=== PATIENT | female | born 1960 | race Caucasian/White ===

== ENCOUNTER → 2021-01-09 10:04 | Outpatient (BNVA) | payer BC, SELFPAY | PROVIDERS: PCP Internal Medicine; Visit Provider Hospitalist ==

== ENCOUNTER 2021-11-18 | Outpatient (REF) | payer BC, SELFPAY ==
--- NOTE | ~2021-11-18 | CT_ITS ---
EXAMINATION: CT CHEST WITHOUT CONTRAST CLINICAL INFORMATION: Other nonspecific abnormal finding of lung field COMPARISON: None TECHNIQUE: Multidetector volumetric CT imaging of the chest was done. Axial MIP volume rendering provided. Sagittal and coronal reformatted images were obtained. This CT examination was performed using dose optimization techniques as appropriate, variously including the following: *Automated exposure control *Adjustment of mA and/or kV according to patient size (this includes techniques or standardized protocols for targeted exams where dose is matched to indication/reason for exam; i.e. extremities or head) *Use of iterative reconstruction technique DLP: 188 mGy-cm FINDINGS: The heart is normal in size. Coronary artery calcifications are present. There is no pericardial effusion. Normal caliber thoracic aorta. A few normal-sized mediastinal lymph nodes are noted. No enlarged axillary lymph nodes. Central airways are patent. Lungs are well aerated. Mild biapical scarring. Minimal subpleural opacities dependently suggesting atelectasis. There is no lobar consolidation. No pleural effusion or pneumothorax. 4 mm pulmonary nodule of the right middle lobe (image 253/503, series 7). 4 mm subpleural nodule of the left lower lobe (image 298). Visualized portions of the abdomen are grossly unremarkable. Mild to moderate diffuse degenerative changes of the spine. CT/CT chest wo con IMPRESSION: -No lobar consolidation, pleural effusion or pneumothorax. -A few sub-5 mm pulmonary nodules are identified. According to the UPDATED 2017 Fleischner Society recommendations, the advised follow-up imaging for solid nodules < 6 mm is: LOW RISK PATIENT: No routine follow-up. HIGH RISK PATIENT: Optional CT at 12 months. Fleischner guidelines were followed.
== END 2021-11-18 00:01 ==
LOC: HO.CT
PROVIDERS: Visit Provider Hospitalist
DX: R91.8 Other nonspecific abnormal finding of lung field (principal); R59.1 Generalized enlarged lymph nodes
CPT/HCPCS: 71250

== ENCOUNTER 2021-12-19 16:05 | Outpatient (REF) | payer BC, SELFPAY ==
--- NOTE | 2021-12-19 17:34 | PFT_ITS ---
FLOWS: FEV1 79% predicted at 1.96 L. FVC 67% of predicted at 2.16 L. FEV1 to FVC ratio of 0.91. Positive bronchodilator response. LUNG VOLUMES: Total lung capacity 74% of predicted at 3.77 L. Residual volume 65% predicted at 1.33 L. Slow vital capacity 81% of predicted at 2.44 L. Expiratory reserve volume 11% of predicted at 0.10 L. Diffusion capacity is mildly decreased, diffusion capacity corrects to normal after adjustment for alveolar ventilation. IMPRESSION: Moderate restrictive ventilatory defect with positive bronchodilator response. Decreased expiratory reserve volume suggests extrathoracic restriction, likely secondary to abdominal obesity. Mic Blair MD AP/MODL / [phone]
== END 2021-12-19 16:06 | disposition home or self-care (01) ==
LOC: HO.RESP 16:05
PROVIDERS: PCP Internal Medicine; Visit Provider Hospitalist
DX: R06.00 Dyspnea, unspecified (principal); J44.9 Chronic obstructive pulmonary disease, unspecified
CPT/HCPCS: 94060; 94727; 94729

== ENCOUNTER → 2022-01-16 15:34 | Outpatient (BNVA) | payer BC, SELFPAY | PROVIDERS: PCP Internal Medicine; Visit Provider Hospitalist ==

== ENCOUNTER → 2022-06-02 13:33 | Outpatient (BNVA) | payer BC, SELFPAY | PROVIDERS: PCP Internal Medicine; Visit Provider Hospitalist | DX: J44.9 Chronic obstructive pulmonary disease, unspecified (principal); R59.1 Generalized enlarged lymph nodes; R91.8 Other nonspecific abnormal finding of lung field; G47.33 Obstructive sleep apnea (adult) (pediatric); Z99.89 Dependence on other enabling machines and devices | CPT/HCPCS: 94618 ==

== ENCOUNTER 2022-12-11 15:46 | Outpatient (REF) | payer BC, SELFPAY ==
[2022-12-11 16:29] LABS: MANUAL DIFF FLAG NO
[2022-12-11 17:02] LABS: Basophils Absolute Auto 0.1 X10*3/uL (0.0-0.2); Basophils Percent Auto 0.6 % (0-2); Eosinophils Absolute Auto 0.2 X10*3/uL (0.0-0.4); Eosinophils Percent Auto 2.4 % (0-4); Hematocrit 39.4 % (37.0-47.0); Hemoglobin 12.9 g/dl (12.0-16.0); Imm Gran Abs Auto 0.04 X10*3/uL (0.00-0.03); Imm Gran Pct Auto 0.4 % (0.0-0.4); Lymphocytes Absolute Auto 2.4 X10*3/uL (1.2-4.9); Lymphocytes Percent Auto 24.7 % (20-40); Mean Corpuscular HGB Conc 32.7 g/dl (31.0-35.0); Mean Corpuscular Hemoglobin 28.6 pg (27.0-33.0); Mean Corpuscular Volume 87.4 fL (80.0-98.0); Mean Platelet Volume 10.9 fL (9.4-12.3); Monocytes Absolute Auto 0.7 X10*3/uL (0.1-1.2); Monocytes Percent Auto 7.5 % (2-11); Neutrophils Absolute Auto 6.3 x10*3/uL (2.0-8.3); Neutrophils Percent Auto 64.4 % (45-73); Platelet Count 296 X10*3/uL (160-400); Red Blood Count 4.51 X10*6/uL (4.20-5.50); Red Cell Distribution Width 14.1 % (11.0-16.0); White Blood Count 9.7 X10*3/uL (4.8-10.8)
[2022-12-11 17:10] LABS: D Dimer High Sensitivity 191 NG/ML
[2022-12-11 17:32] LABS: Anion Gap 13 (12-20); Blood Urea Nitrogen 22 mg/dL (9-16); Calcium 9.7 mg/dL (8.4-10.2); Carbon Dioxide 32 mmol/L (22-29); Chloride 98 mmol/L (96-108); Estimated Glomerular Filt Rate > 60; Glucose Random 93 mg/dL (60-115); Potassium 3.9 mmol/L (3.3-5.1); Sodium 139 mmol/L (135-145)
[2022-12-11 17:36] LABS: B Type Natriuretic Peptide 29 pg/mL (<100); Erythrocyte Sedimentation Rate 38 MM/HR (0-20)
== END 2022-12-11 15:47 | disposition home or self-care (01) ==
LOC: HO.LAB 15:46
PROVIDERS: PCP Internal Medicine; Visit Provider Hospitalist
DX: R06.00 Dyspnea, unspecified (principal); R09.02 Hypoxemia; R91.8 Other nonspecific abnormal finding of lung field; J44.9 Chronic obstructive pulmonary disease, unspecified; I50.9 Heart failure, unspecified; R15.9 Full incontinence of feces; G47.33 Obstructive sleep apnea (adult) (pediatric); Z99.89 Dependence on other enabling machines and devices
CPT/HCPCS: 36415; 80048; 83880; 85025; 85379; 85652

== ENCOUNTER → 2023-01-08 15:49 | Outpatient (BNVA) | payer BC, SELFPAY | PROVIDERS: PCP Internal Medicine; Visit Provider Hospitalist | DX: R06.00 Dyspnea, unspecified (principal); I50.9 Heart failure, unspecified; R91.8 Other nonspecific abnormal finding of lung field; R09.02 Hypoxemia ==

== ENCOUNTER 2023-02-09 16:03 | Outpatient (REF) | payer BC, SELFPAY ==
--- NOTE | ~2023-02-09 | CT_ITS ---
EXAMINATION: CT CHEST WITHOUT CONTRAST CLINICAL INFORMATION: Other nonspecific abnormal finding of lung field COMPARISON: Previous chest CT November 2021 TECHNIQUE: Multidetector volumetric CT imaging of the chest was done. Axial MIP volume rendering provided. Sagittal and coronal reformatted images were obtained. This CT examination was performed using dose optimization techniques as appropriate, variously including the following: *Automated exposure control *Adjustment of mA and/or kV according to patient size (this includes techniques or standardized protocols for targeted exams where dose is matched to indication/reason for exam; i.e. extremities or head) *Use of iterative reconstruction technique DLP: 302 mGy-cm FINDINGS: LUNGS: There are scattered small areas of increased attenuation. The majority of these appear either peripheral or subpleural in distribution. There is a question of a slight increase in increased peripheral interstitial markings or reticulation. Findings are questionable for mild interstitial lung disease. Appears increased from There is a 4 mm right middle lobe nodule axial image 211 series 5 that is stable. There is a 4 mm peripheral or subpleural left lower lobe nodule axial image 252 series 5 that is stable. There is a 3 mm peripheral or subpleural right middle lobe nodule axial image 251 series 5. No new pulmonary nodule. MEDIASTINUM: The mediastinum is normal. CORONARY ARTERY CALCIFICATION: Mild PLEURA: There is no pleural effusion. No pleural mass or thickening. AXILLA: No lymphadenopathy. UPPER ABDOMEN: Unremarkable. The gallbladder has been removed. OSSEOUS STRUCTURES: Degenerative changes of the spine. CT/CT chest wo IV con IMPRESSION: Stable pulmonary nodules. Question mild interstitial lung disease. Prone imaging on follow-up exam would be helpful to distinguish this from dependent atelectasis. Fleischner guidelines were followed.
[2023-02-09 19:46] LABS: Anion Gap 15 (12-20); Blood Urea Nitrogen 17 mg/dL (9-16); Calcium 9.6 mg/dL (8.4-10.2); Carbon Dioxide 30 mmol/L (22-29); Chloride 98 mmol/L (96-108); Estimated Glomerular Filt Rate > 60; Glucose Random 88 mg/dL (60-115); Potassium 4.2 mmol/L (3.3-5.1); Sodium 139 mmol/L (135-145)
== END 2023-02-09 16:04 | disposition home or self-care (01) ==
LOC: HO.LAB 16:03
PROVIDERS: PCP Internal Medicine; Visit Provider Hospitalist
DX: R91.8 Other nonspecific abnormal finding of lung field (principal); I50.9 Heart failure, unspecified; R09.02 Hypoxemia; R06.00 Dyspnea, unspecified
CPT/HCPCS: 36415; 71250; 80048

== ENCOUNTER 2023-03-12 15:45 | Outpatient (REF) | payer BC, SELFPAY ==
[2023-03-12 16:29] LABS: MANUAL DIFF FLAG NO
[2023-03-12 16:35] LABS: Basophils Absolute Auto 0.1 X10*3/uL (0.0-0.2); Basophils Percent Auto 0.5 % (0-2); Eosinophils Absolute Auto 0.2 X10*3/uL (0.0-0.4); Eosinophils Percent Auto 2.1 % (0-4); Hematocrit 38.6 % (37.0-47.0); Hemoglobin 12.8 g/dl (12.0-16.0); Imm Gran Abs Auto 0.03 X10*3/uL (0.00-0.03); Imm Gran Pct Auto 0.3 % (0.0-0.4); Lymphocytes Absolute Auto 2.2 X10*3/uL (1.2-4.9); Lymphocytes Percent Auto 23.5 % (20-40); Mean Corpuscular HGB Conc 33.2 g/dl (31.0-35.0); Mean Corpuscular Hemoglobin 28.7 pg (27.0-33.0); Mean Corpuscular Volume 86.5 fL (80.0-98.0); Mean Platelet Volume 9.9 fL (9.4-12.3); Monocytes Absolute Auto 0.7 X10*3/uL (0.1-1.2); Monocytes Percent Auto 7.7 % (2-11); Neutrophils Absolute Auto 6.2 x10*3/uL (2.0-8.3); Neutrophils Percent Auto 65.9 % (45-73); Platelet Count 295 X10*3/uL (160-400); Red Blood Count 4.46 X10*6/uL (4.20-5.50); Red Cell Distribution Width 14.6 % (11.0-16.0); White Blood Count 9.4 X10*3/uL (4.8-10.8)
[2023-03-12 17:13] LABS: Erythrocyte Sedimentation Rate 33 MM/HR (0-20)
[2023-03-14 02:38] LABS: Immunoglobulin E 112 kU/L (<OR=114)
[2023-03-16 15:47] LABS: Cyclic Citrullinated Peptide <16 UNITS
[2023-03-17 12:19] LABS: Anti Nuclear Antibody Screen NEGATIVE (NEGATIVE)
[2023-03-19 15:13] LABS: Asperg fumigatus Precip Abs NEGATIVE (NEGATIVE); Micropoly faeni Abs NEGATIVE (NEGATIVE); Pigeon serum Abs NEGATIVE (NEGATIVE); Saccharo pora viridis Abs NEGATIVE (NEGATIVE); Thermo candidus Abs NEGATIVE (NEGATIVE); Thermoa vulgaris #1 NEGATIVE (NEGATIVE)
== END 2023-03-12 15:46 | disposition home or self-care (01) ==
LOC: HO.LAB 15:45
PROVIDERS: PCP Internal Medicine; Visit Provider Hospitalist
DX: R06.00 Dyspnea, unspecified (principal); I50.9 Heart failure, unspecified; R91.8 Other nonspecific abnormal finding of lung field; R09.02 Hypoxemia; J84.9 Interstitial pulmonary disease, unspecified; J44.9 Chronic obstructive pulmonary disease, unspecified; R59.1 Generalized enlarged lymph nodes; G47.33 Obstructive sleep apnea (adult) (pediatric); Z99.89 Dependence on other enabling machines and devices
CPT/HCPCS: 36415; 82164; 82785; 85025; 85652; 86038; 86200; 86331; 86606; 86609

== ENCOUNTER 2023-06-16 15:49 | Outpatient (AMB) | payer BC, SELFPAY ==
--- NOTE | 2023-06-16 15:52 | A.OFFVIS_ITS ---
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 She responded very well to the Trelegy inhaler. She has not had to use her rescue inhaler. She it does relieve her dyspnea and also relieve some of the chest pressure. She notices that her oxygen levels during the daytime are in the low 90s. At nighttime she does use CPAP the CPAP therapy continues to be a very effective in beneficial. She does use the CPAP more than 4 hours a night. She did have a CT scan of the chest which we pers onally reviewed back in May 2019demonstrating small pulmonary nodules that do any follow-up. For but she also has test suggestive of the possibility of pulmonary hypertension. Therefore, she should have a echocardiogram. 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 In the meantime the patient is doing very well on her respiratory therapy. Denies any significant shortness of breath and wheezing. She is scheduled for another CT scan in May of this year to follow up with her pulmonary nodules. 01/09/2021 The patient is here for a pulmonary follow up visit. Overall doing well. Having dyspnea on exertion, mild in severity. Symptoms overall better on the Trelegy inhaler. Has not required any Prednisone. Her PAP therapy continues to be effective and beneficial. She uses it more than 4 hours a night. I did request that her [employer] sent over a download. She does wake up rested and denies any headaches. The [employer] company never delivered the device. At this point we can hold off on it. We did review her last 2 [address] chest from [facility]. She has a couple subcentemeter pulmonary nodules that appear stable when compared to 2019. However, She does have mediastinal lymphadenopathy with station [address] measuring a little more than 1cm. Based on the the findings, I will request a CT chest in 6-8 months. 01/16/2022 the patient is here for a pulmonary follow-up visit. She continues to have the dyspnea symptoms. Initially better on the Trelegy but not since completely improved. She has been trying to lose weight. The patient did undergo pulmonary function studies that I personally reviewed with her. It appears that she does not have an obstructive ventilatory defect, although, she does have a mild restrictive ventilatory defect associated with mild diffusion impairment. She also had a CT scan of the chest that we were able to look at and ruled out any interstitial lung disease that could be contributing to the restriction. At this point is more likely to be related to body habitus. I did encourage her for her to continue to exercising weight management and her symptoms should improve. In the meantime with and also increase her Trelegy to the maximum dose. As far as her pulmonary nodules the patient does have underlying pulmonary nodules that need to be continued to be followed. No acute changes at this time. She does have some slight lymphadenopathy but minimal. In addition to that she does have a CPAP. She does have an old [employer] which now is recall. She did not know about the recall. She was going to look into it I did provide her with the information in order for her to register her machine so she can get a replacement machine. When she gets a replacement machine can not adjust the pressures. Currently her CPAP is set up a CPAP of 9 cm. She is using a nasal mask. I cannot get an AHI but she clinically is doing well feels well on it. Hopefully when she does any machine we can download it and get proper apnea-hypopnea index. 06/02/2022 the patient is here for a pulmonary follow-up visit. She continues to have dyspnea symptoms. Moderate severity. Primarily with activity. She did have a 6 minutes walk test today which was reassuring. She continues use her CPAP with good effect. The CPAP therapy continues to be affecting beneficial. She also continues on maximum respiratory therapy for her obstructive airway disease. The patient does have increased swelling her lower extremities. My suspicion is that she is volume overloaded. Therefore will trial some Lasix to see if she improves her lower extremity swelling and also her symptoms of dyspnea. Will going to continue on the Trelegy at this time. Once the patient completes the Lasix it is reasonable to check her basic metabolic panel to make sure that she does not have any electrolyte derangements. once she completes the bases he can go back on her regular medication. 12/11/2022 the patient is here for a pulmonary follow-up visit. She still continues to complaint of dyspnea on exertion. Again moderate severity. Hard to do her activities of daily living. We again underwent a 6 minute walk testin g this time she did desaturate down to to 90% with activity which is lower than before. She still has significant lower extremity edema. She was placed on a mild diuretic. Previously we had given her several days of Lasix to try to improve her volume status. The patient is currently being evaluated for some degree of cardiomyopathy. She is scheduled for cardiac PET. She did have the cardiac PET but then the machine lost the data and therefore she is rescheduled to undergo that. She continues to use the Trelegy inhaler. she has not had to use his rescue inhaler. The patient also continues with her CPAP therapy if therapy has been affecting beneficial. She does use it more than 4 hours a night. She did bring the download card although we cannot read the card. She will bring her machine It for the next visit. In view of the worsening hypoxia will go ahead and request blood work. 01/08/2023 the the patient is here again for follow-up visit. She still complains of dyspnea on exertion. Moderate severity. She is scheduled to follow-up with cardiology. She does have some degree of cardiomyopathy and was scheduled for cardiac. But now is on hold. Therefore, she will follow-up with cardiology and likely get an echocardiogram. She continues to be on Trelegy inhaler. She also brought her CPAP. Her AHI is up to 3. Her average pressure is 10. I did adjust the APAP to 6-12. The patient will try this and then will increase accordingly. I do not believe that her obstructive sleep apnea is resulting in her shortness of breath however. Will try to improve those numbers anyway. The patient still having shortness of breath and did go for brief walking test today she is still desaturating down to 92%. On examination she does have some rales on the right mid lung area. Mainly in late inspiration. Her last CT scan was last year for pulmonary nodules and now with the evidence of crackles on examination and her hypoxia will go ahead and repeat the CT scan. I did request a D-dimer which was negative for therefore irregular noncontrast CT scan will be sufficient for on needs. In the meantime view of her ongoing symptoms will be reasonable to treated with a short course of prednisone to see there is improvement of her symptoms and also to see if it improves the findings on her CT scan. 03/12/2023 the patient is here for a pulmonary follow-up visit. She is feeling a little better. Although her pulse ox continues to be a little bit on the lower side for her. Her chest tightness is improved a little bit and she still has the shortness of breath. She did follow-up with the Cardiology and did undergo an echocardiogram which was told that was okay and now will be undergoing a cardiac PET scan. She did complete the prednisone. She did also have a CT scan of the chest which we personally reviewed. Her pulmonary nodules are stable although does have have some increased interstitial changes at the bases right more than left. Indeed she still has some crackles in that area. These interstitial changes are new suggesting an evolving process. The changes are minimal but is suspecting that this is resulting in her decreased oxygen supplementation and her ongoing symptoms. Will have her undergo blood work to assess for different etiologies for the interstitial lung condition. 06/16/2023 the patient is here for pulmonary follow-up visit. She continues to be about the same, complaining of dyspnea on exertion. Gupq-on-aesckxln severity. She did not respond to the Trelegy inhaler. She does better with the rescue inhaler. The patient also had a CT scan demonstrating some interstitial changes. Her blood work was all negative for any connective tissue diseases or hypersensitivity reactions. Will have to monitor those changes. Her pulmonary nodules have been stable which is reassuring. Her last pulmonary function study was back from December 2021. At this point in view of her persistent symptoms repeating the PFTs will be warranted. Will also optimize her respiratory treatment switching over to an HFA. The patient also has been using her CPAP. She did bring it in. Her AHI still slightly elevated around 3. It appears that her average pressure is 11.9 and her machine is only set up to go to 12. Explained to the patient that she would need a higher pressure. Although I will increase the just slightly to make sure that she continues to tolerate appeared. If she does tolerate the pressures but she thinks she needs further elevations she can always call me and I can adjust the machine. Right now we increase that from 6-12 to 05/10/2013. Should be switched to the breztri inhaler have PFTs will follow-up in 3-4 months. [facility], [facility] Medical History (Updated 06/16/23 @ 22:52 by Bharat Knight MD) Asthma-COPD overlap syndrome Lymphadenopathy VIVIENNE on CPAP Pulmonary nodules Social History (Updated 01/16/22 @ 15:48 by LAVELLE Rodriguez) Patient Tobacco Use Status: Never used Tobacco Review of Systems Const Denies night sweats ENT Denies change in voice, Denies lip swelling, Denies mouth pain, Reports nasal congestion, Reports nasal discharge and Denies tongue swelling Card Denies chest pain, Reports leg edema and Reports dyspnea on exertion Resp Reports cough and Reports dyspnea on exertion GI Denies abdominal pain Musc Denies no additional complaints Neuro Denies Neuro-related abnormal movements Psych Denies no additional complaints Kemar/Lymph Denies easy bleeding and Denies lymphadenopathy Aller/Immun Denies lip swelling and Denies tongue swelling Physical Exam Vital Signs: Last Vital Signs Pulse 72 06/16/23 15:53 Pulse Ox 97 06/16/23 15:53 Oxygen Delivery Method Room Air 06/16/23 15:53 BMI result Body Mass Index 41.4 Const General: alert HEENT General nose exam: Abnormal external nose present and Nasal discharge present Eyes Pupils: Equal, round and reactive pupils present Neck Neck: Yes normal visual inspection, Yes full ROM and Yes no lymphadenopathy Chest Chest palpation & inspection: normal inspection of the chest Resp Auscultation: rales on the right in the mid lung watts, no rhonchi, no wheezes and diminished lung sounds Cardio Rate: regular rate Rhythm: regular rhythm Heart sounds: S1 normal heart sound present and S2 normal heart sound present GI Palpation (GI): Soft to palpation and nontender Auscultation: normal bowel sounds General: Yes no CVA tenderness Back/Spine/Pelvis Back: no CVA tenderness Skin General skin exam: rashes and/or lesions noted Neuro Cranial nerves: Yes Equal, round and reactive pupils present Extrem General: Yes edema Assessment & Plan Assessment & Plan (1) Asthma-COPD overlap syndrome: Code(s): J44.9 - Chronic obstructive pulmonary disease, unspecified (2) Lymphadenopathy: Code(s): R59.1 - Generalized enlarged lymph nodes (3) Pulmonary nodules: Code(s): R91.8 - Other nonspecific abnormal finding of lung field (4) VIVIENNE on CPAP: Code(s): G47.33 - Obstructive sleep apnea (adult) (pediatric); Z99.89 - Dependence on other enabling machines and devices (5) ILD (interstitial lung disease): Code(s): J84.9 - Interstitial pulmonary disease, unspecified Plan stop Trelegy to 200 mcg daily start Breztri JAVAD as needed Continue APAP, adjusted 6-12 to 7-13 ([employer], buys her supplies) PFTs F/U 3-4 months Orders: Orders PFT pulmonary function test Today J84.9 - Interstitial pulmonary disease, unspecified Medications: New drpkxtlgto-ihshslgu-qiatodvama 160-9-4.8 mcg/actuation (Breztri Aerosphere) 2 inhalations inhalation BID 10.7 grams 11RF 30 days Coding Level of Care Code Est Pt Level 4 (52472) Diagnoses Asthma-COPD overlap syndrome J44.9 Lymphadenopathy R59.1 Pulmonary nodules R91.8 VIVIENNE on CPAP G47.33; Z99.89 ILD (interstitial lung disease) J84.9 Time Spent (min) 21
[2023-06-16 15:53] VITALS: PULSE 72; O2SAT 97; BMI 41.4
== END 2023-06-16 16:28 | disposition home or self-care (01) ==
PROVIDERS: PCP Internal Medicine; Visit Provider Hospitalist
DX: J44.9 Chronic obstructive pulmonary disease, unspecified (principal); R59.1 Generalized enlarged lymph nodes; R91.8 Other nonspecific abnormal finding of lung field; G47.33 Obstructive sleep apnea (adult) (pediatric); Z99.89 Dependence on other enabling machines and devices; J84.9 Interstitial pulmonary disease, unspecified
CPT/HCPCS: 99214

== ENCOUNTER → 2023-06-16 15:49 | Outpatient (BNVA) | payer BC, SELFPAY | PROVIDERS: PCP Internal Medicine; Visit Provider Hospitalist ==

== ENCOUNTER 2023-10-26 15:59 | Outpatient (REF) | payer BC, SELFPAY ==
--- NOTE | 2023-10-26 16:23 | PFT_ITS ---
Spirometry [] Forced vital capacity 79%, FEV1 83%, FEV1/FVC ratio 82 FEF 03/28/2075 114% and MVV 84%. Post bronchodilator therapy there is no improvement Lung Volumes [] Total lung capacity 75% residual volume 76% Diffusion Capacity [] DLCO 75% and dL/VA 108% Methacholine Challenge [] Flow Volume Loops [] Normal MVV [] MIP/MEP(Max inspiratory pressure/Max expiratory pressure) [] 6 Minute Walk Test [] ABG [] Interpretation [] MILD RESTRICTIVE PULMONARY DISORDER NO OBSTRUCTIVE AIRWAY DISORDER AND NO RESPONSE TO BRONCHODILATOR THERAPY. MTDD
== END 2023-10-26 16:00 | disposition home or self-care (01) ==
LOC: HO.RESP 15:59
PROVIDERS: Visit Provider Hospitalist
DX: J84.9 Interstitial pulmonary disease, unspecified (principal)
CPT/HCPCS: 94010; 94727; 94729

== ENCOUNTER → 2023-10-26 16:23 | Outpatient (BNV) | payer BC, SELFPAY | PROVIDERS: Visit Provider Internal Medicine | DX: J84.9 Interstitial pulmonary disease, unspecified (principal) | CPT/HCPCS: 94060; 94727; 94729 ==

== ENCOUNTER 2023-11-10 15:52 | Outpatient (AMB) | payer BC, SELFPAY ==
--- NOTE | 2023-11-10 15:53 | A.OFFVIS_ITS ---
Intake Vital Signs 11/10/23 15:54 Height 5 ft 4 in Weight 255 lb 11.779 oz BMI 43.9 BP 137/78 Blood Pressure Location Rt brachial Position Sitting Pulse 62 Pulse Source Doppler Pulse Oximetry (%) 98 Oxygen Delivery Method Room Air Intake Visit Reasons: copd Allergies lisinopril Allergy (Severe, Verified 11/10/23 15:55) Anaphylaxis HPI HPI Comments History of Present Illness Details The patient is a 63-year-old woman with a history of COPD in addition to dyspnea and chest discomfort. She responded very well to the Trelegy inhaler. She has not had to use her rescue inhaler. She it does relieve her dyspnea and also relieve some of the chest pressure. She notices that her oxygen levels during the daytime are in the low 90s. At nighttime she does use CPAP the CPAP therapy continues to be a very effective in beneficial. She does use the CPAP more than 4 hours a night. She did have a CT scan of the chest which we personally reviewed back in May 2019demonstrating small pulmonary nodules that do any follow-up. For but she also has test suggestive of the possibility of pulmonary hypertension. Therefore, she should have a echocardiogram. 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 In the meantime the patient is doing very well on her respiratory therapy. Denies any significant shortness of breath and wheezing. She is scheduled for another CT scan in May of this year to follow up with her pulmonary nodules. 01/09/2021 The patient is here for a pul monary follow up visit. Overall doing well. Having dyspnea on exertion, mild in severity. Symptoms overall better on the Trelegy inhaler. Has not required any Prednisone. Her PAP therapy continues to be effective and beneficial. She uses it more than 4 hours a night. I did request that her [employer] company sent over a download. She does wake up rested and denies any headaches. The [employer] company never delivered the device. At this point we can hold off on it. We did review her last 2 [address] chest from [facility]. She has a couple subcentemeter pulmonary nodules that appear stable when compared to 2019. However, She does have mediastinal lymphadenopathy with station [address] measuring a little more than 1cm. Based on the the findings, I will request a CT chest in 6-8 months. 01/16/2022 the patient is here for a pulmonary follow-up visit. She continues to have the dyspnea symptoms. Initially better on the Trelegy but not since completely improved. She has been trying to lose weight. The patient did undergo pulmonary function studies that I personally reviewed with her. It appears that she does not have an obstructive ventilatory defect, although, she does have a mild restrictive ventilatory defect associated with mild diffusion impairment. She also had a CT scan of the chest that we were able to look at and ruled out any interstitial lung disease that could be contributing to the restriction. At this point is more likely to be related to body habitus. I did encourage her for her to continue to exercising weight management and her symptoms should improve. In the meantime with and also increase her Trelegy to the maximum dose. As far as her pulmonary nodules the patient does have underlying pulmonary nodules that need to be continued to be followed. No acute changes at this time. She does have some slight lymphadenopathy but minimal. In addition to that she does have a CPAP. She does have an old [employer] which now is recall. She did not know about the recall. She was going to look into it I did provide her with the information in order for her to register her machine so she can get a replacement machine. When she gets a replacement machine can not adjust the pressures. Currently her CPAP is set up a CPAP of 9 cm. She is using a nasal mask. I cannot get an AHI but she clinically is doing well feels well on it. Hopefully when she does any machine we can download it and get proper apnea-hypopnea index. 06/02/2022 the patient is here for a pulmonary follow-up visit. She continues to have dyspnea symptoms. Moderate severity. Primarily with activity. She did have a 6 minutes walk test today which was reassuring. She continues use her CPAP with good effect. The CPAP therapy continues to be affecting beneficial. She also continues on maximum respiratory therapy for her obstructive airway disease. The patient does have increased swelling her lower extremities. My suspicion is that she is volume overloaded. Therefore will trial some Lasix to see if she improves her lower extremity swelling and also her symptoms of dyspnea. Will going to continue on the Trelegy at this time. Once the patient completes the Lasix it is reasonable to check her basic metabolic panel to make sure that she does not have any electrolyte derangements. once she completes the bases he can go back on her regular medication. 12/11/2022 the patient is here for a pulmonary follow-up visit. She still continues to complaint of dyspnea on exertion. Again moderate severity. Hard to do her activities of daily living. We again underwent a 6 minute walk testing this time she did desaturate down to to 90% with activity which is lower than before. She still has significant lower extremity edema. She was placed on a mild diuretic. Previously we had given her several days of Lasix to try to improve her volume status. The patient is currently being evaluated for some degree of cardiomyopathy. She is scheduled for cardiac PET. She did have the cardiac PET but then the machine lost the data and therefore she is rescheduled to undergo that. She continues to use the Trelegy inhaler. she has not had to use his rescue inhaler. The patient also continues with her CPAP therapy if therapy has been affecting beneficial. She does use it more than 4 hours a night. She did bring the download card although we cannot read the card. She will bring her machine It for the next visit. In view of the worsening hypoxia will go ahead and request blood work. 01/08/2023 the the patient is here again for follow-up visit. She still complains of dyspnea on exertion. Moderate severity. She is scheduled to follow-up with cardiology. She does have some degree of cardiomyopathy and was scheduled for cardiac. But now is on hold. Therefore, she will follow-up with cardiology and likely get an echocardiogram. She continues to be on Trelegy inhaler. She also brought her CPAP. Her AHI is up to 3. Her average pressure is 10. I did adjust the APAP to 6-12. The patient will try this and then will increase accordingly. I do not believe that her obstructive sleep apnea is resulting in her shortness of breath however. Will try to improve those numbers anyway. The patient still having shortness of breath and did go for brief walking test today she is still desaturating down to 92%. On examination she does have some rales on the right mid lung area. Mainly in late inspiration. Her last CT scan was last year for pulmonary nodules and now with the evidence of crackles on examination and her hypoxia will go ahead and repeat the CT scan. I did request a D-dimer which was negative for therefore irregular noncontrast CT scan will be sufficient for on needs. In the meantime view of her ongoing symptoms will be reasonable to treated with a short course of prednisone to see there is improvement of her symptoms and also to see if it improves the findings on her CT scan. 03/12/2023 the patient is here for a pulmo nary follow-up visit. She is feeling a little better. Although her pulse ox continues to be a little bit on the lower side for her. Her chest tightness is improved a little bit and she still has the shortness of breath. She did follow-up with the Cardiology and did undergo an echocardiogram which was told that was okay and now will be undergoing a cardiac PET scan. She did complete the prednisone. She did also have a CT scan of the chest which we personally reviewed. Her pulmonary nodules are stable although does have have some increased interstitial changes at the bases right more than left. Indeed she still has some crackles in that area. These interstitial changes are new suggesting an evolving process. The changes are minimal but is suspecting that this is resulting in her decreased oxygen supplementation and her ongoing symptoms. Will have her undergo blood work to assess for different etiologies for the interstitial lung condition. 06/16/2023 the patient is here for pulmonary follow-up visit. She continues to be about the same, complaining of dyspnea on exertion. [id number] se verity. She did not respond to the Trelegy inhaler. She does better with the rescue inhaler. The patient also had a CT scan demonstrating some interstitial changes. Her blood work was all negative for any connective tissue diseases or hypersensitivity reactions. Will have to monitor those changes. Her pulmonary nodules have been stable which is reassuring. Her last pulmonary function study was back from December 2021. At this point in view of her persistent symptoms repeating the PFTs will be warranted. Will also optimize her respiratory treatment switching over to an HFA. The patient also has been using her CPAP. She did bring it in. Her AHI still slightly elevated around 3. It appears that her average pressure is 11.9 and her machine is only set up to go to 12. Explained to the patient that she would need a higher pressure. Although I will increase the just slightly to make sure that she continues to tolerate appeared. If she does tolerate the pressures but she thinks she needs further elevations she can always call me and I can adjust the machine. Right now we increase that from 6-12 to 05/10/2013. Should be switched to the breztri inhaler have PFTs will follow-up in 3-4 months. 11/10/2023 the patient is here for for pul monary follow-up visit. Overall she is doing better. She is responding well to the breztri inhaler. She has not required her rescue inhaler. She still gets shortness of breath with activity [id number] severity. But overall she is doing well. She is trying to work on weight management. She tried some lifestyle changes and she will continue to do so. The patient did have pulmonary function studies in the office which we personally reviewed. Compared to 2020 there appears to be some improvement in her FVC and also in the FEV1 which is reassuring. She still has a mild restriction and mild diffusion impairment. Although they should not be enough to cause her to have significant symptoms I did review her last CT scan of the chest that she had and it does demonstrate some areas of haziness suggesting more of atelectasis more than pneumonitis or interstitial abuse. The patient has been using her CPAP. The CPAP therapy continues to be affecting beneficial and she does use it every night. No changes there. Will follow-up in 6 months unless any new issues arise the patient will call for an earlier assessment [facility] Medical History (Updated 11/10/23 @ 21:10 by Bharat Knight MD) VIVIENNE on CPAP Pulmonary nodules Lymphadenopathy Asthma-COPD overlap syndrome Social History Patient Tobacco Use Status: Never used Tobacco Review of Systems Const Denies night sweats ENT Denies change in voice, Denies lip swelling, Denies mouth pain, Reports nasal congestion, Reports nasal discharge and Denies tongue swelling Card Denies chest pain, Reports leg edema and Reports dyspnea on exertion Resp Reports cough and Reports dyspnea on exertion GI Denies abdominal pain Musc Denies no additional complaints Neuro Denies Neuro-related abnormal movements Psych Denies no additional complaints Kemar/Lymph Denies easy bleeding and Denies lymphadenopathy Aller/Immun Denies lip swelling and Denies tongue swelling Physical Exam Vital Signs: Last Vital Signs Pulse 62 11/10/23 15:54 BP 137/78 11/10/23 15:54 Pulse Ox 98 11/10/23 15:54 Oxygen Delivery Method Room Air 11/10/23 15:54 BMI result Body Mass Index 43.9 Const General: alert HEENT General nose exam: Abnormal external nose present and Nasal discharge present Eyes Pupils: Equal, round and reactive pupils present Neck Neck: Yes normal visual inspection, Yes full ROM and Yes no lymphadenopathy Chest Chest palpation & inspection: normal inspection of the chest Resp Auscultation: no rales, no rhonchi, no wheezes and diminished lung sounds Cardio Rate: regular rate Rhythm: regular rhythm Heart sounds: S1 normal heart sound present and S2 normal heart sound present GI Palpation (GI): Soft to palpation and nontender Auscultation: normal bowel sounds General: Yes no CVA tenderness Back/Spine/Pelvis Back: no CVA tenderness Skin General skin exam: rashes and/or lesions noted Neuro Cranial nerves: Yes Equal, round and reactive pupils present Extrem General: Yes edema Assessment & Plan Assessment & Plan (1) Asthma-COPD overlap syndrome: Code(s): J44.9 - Chronic obstructive pulmonary disease, unspecified (2) Lymphadenopathy: Code(s): R59.1 - Generalized enlarged lymph nodes (3) Pulmonary nodules: Code(s): R91.8 - Other nonspecific abnormal finding of lung field (4) VIVIENNE on CPAP: Code(s): G47.33 - Obstructive sleep apnea (adult) (pediatric); Z99.89 - Dependence on other enabling machines and devices (5) ILD (interstitial lung disease): Comment: looks like atelectasis more than ILD Code(s): J84.9 - Interstitial pulmonary disease, unspecified Plan continue Breztri JAVAD as needed Continue APAP, adjusted 6-12 to 7-13 ([employer], buys her supplies) F/U 6 months Coding Level of Care Code Est Pt Level 4 (84506) Diagnoses Asthma-COPD overlap syndrome J44.9 Lymphadenopathy R59.1 Pulmonary nodules R91.8 VIVIENNE on CPAP G47.33; Z99.89 ILD (interstitial lung disease) J84.9 Time Spent (min) 17
[2023-11-10 15:54] VITALS: BP 137/78; PULSE 62; O2SAT 98; BMI 43.9
== END 2023-11-10 16:20 | disposition home or self-care (01) ==
PROVIDERS: PCP Internal Medicine; Visit Provider Hospitalist
DX: J44.9 Chronic obstructive pulmonary disease, unspecified (principal); R59.1 Generalized enlarged lymph nodes; R91.8 Other nonspecific abnormal finding of lung field; G47.33 Obstructive sleep apnea (adult) (pediatric); Z99.89 Dependence on other enabling machines and devices; J84.9 Interstitial pulmonary disease, unspecified
CPT/HCPCS: 99214

== ENCOUNTER → 2023-11-10 15:52 | Outpatient (BNVA) | payer BC, SELFPAY | PROVIDERS: PCP Internal Medicine; Visit Provider Hospitalist ==

== ENCOUNTER 2024-05-17 10:50 | Outpatient (AMB) | payer BC, SELFPAY ==
[2024-05-17 11:06] VITALS: PULSE 59; O2SAT 96; BMI 42.6
--- NOTE | 2024-05-17 11:06 | A.OFFVIS_ITS ---
Vital Signs 05/17/24 11:06 Height 5 ft 4 in Weight 248 lb BMI 42.6 Pulse 59 Pulse Source Pulse Oximeter Pulse Oximetry (%) 96 Oxygen Delivery Method Room Air Intake Visit Reasons: COPD follow-up [employer] Required: No Allergies lisinopril Allergy (Severe, Verified 05/17/24 11:08) Anaphylaxis HPI Comments Details: The patient is a 63-year-old woman with a history of COPD in addition to dyspnea and chest discomfort. She responded very well to the Trelegy inhaler. She has not had to use her rescue inhaler. She it does relieve her dyspnea and also relieve some of the chest pressure. She notices that her oxygen levels during the daytime are in the low 90s. At nighttime she does use CPAP the CPAP therapy continues to be a very effective in beneficial. She does use the CPAP more than 4 hours a night. She did have a CT scan of the chest which we personally reviewed back in May 2019demonstrating small pulmonary nodules that do any follow-up. For but she also has test suggestive of the possibility of pulmonary hypertension. Therefore, she should have a echocardiogram. She does have a gastroenterology nurse in this was something the were planned to do. In the meantime the patient is doing very well on her respiratory therapy. Denies any significant shortness of breath and wheezing. She is scheduled for another CT scan in May of this year to follow up with her pulmonary nodules. 01/09/2021 The patient is here for a pulmonary follow up visit. Overall doing well. Having dyspnea on exertion, mild in severity. Symptoms overall better on the Trelegy inhaler. Has not required any Prednisone. Her PAP therapy continues to be effective and beneficial. She uses it more than 4 hours a night. I did request that her [employer] sent over a download. She does wake up rested and denies any headaches. The [employer] never delivered the device. At this point we can hold off on it. We did review her last 2 CT chest from [facility]. She has a couple subcentemeter pulmonary nodules that appear stable when compared to 2019. However, She does have mediastinal lymphadenopathy with station [address] measuring a little more than 1cm. Based on the the findings, I will request a CT chest in 6-8 months. 01/16/2022 the patient is here for a pulmonary follow-up visit. She continues to have the dyspnea symptoms. Initially better on the Trelegy but not since completely improved. She has been trying to lose weight. The patient did undergo pulmonary function studies that I personally reviewed with her. It appears that she does not have an obstructive ventilatory defect, although, she does have a mild restrictive ventilatory defect associated with mild diffusion impairment. She also had a CT scan of the chest that we were able to look at and ruled out any interstitial lung disease that could be contributing to the restriction. At this point is more likely to be related to body habitus. I did encourage her for her to continue to exercising weight management and her symptoms should improve. In the meantime with and also increase her Trelegy to the maximum dose. As far as her pulmonary nodules the patient does have underlying pulmonary nodules that need to be continued to be followed. No acute changes at this time. She does have some slight lymphadenopathy but minimal. In addition to that she does have a CPAP. She does have an old [employer] pas[employer]ale m Station which now is recall. She did not know about the recall. She was going to look into it I did provide her with the information in order for her to register her machine so she can get a replacement machine. When she gets a replacement machine can not adjust the pressures. Currently her CPAP is set up a CPAP of 9 cm. She is using a nasal mask. I cannot get an AHI but she clinically is doing well feels well on it. Hopefully when she does any machine we can download it and get proper apnea-hypopnea index. 06/02/2022 the patient is here for a pulmonary follow-up visit. She continues to have dyspnea symptoms. Moderate severity. Primarily with activity. She did have a 6 minutes walk test today which was reassuring. She continues use her CPAP with good effect. The CPAP therapy continues to be affecting beneficial. She also continues on maximum respiratory therapy for her obstructive airway disease. The patient does have increased swelling her lower extremities. My suspicion is that she is volume overloaded. Therefore will trial some Lasix to see if she improves her lower extremity swelling and also her symptoms of dyspnea. Will going to continue on the Trelegy at this time. Once the patient completes the Lasix it is reasonable to check her basic metabolic panel to make sure that she does not have any electrolyte derangements. once she completes the bases he can go back on her regular medication. 12/11/2022 the patient is here for a pulmonary follow-up visit. She still continues to complaint of dyspnea on exertion. Again moderate severity. Hard to do her activities of daily living. We again underwent a 6 minute walk testing this time she did desaturate down to to 90% with activity which is lower than before. She still has significant lower extremity edema. She was placed on a mild diuretic. Previously we had given her several days of Lasix to try to improve her volume status. The patient is currently being evaluated for some degree of cardiomyopathy. She is scheduled for cardiac PET. She did have the cardiac PET but then the machine lost the data and therefore she is rescheduled to undergo that. She continues to use the Trelegy inhaler. she has not had to use his rescue inhaler. The patient also continues with her CPAP therapy if therapy has been affecting beneficial. She does use it more than 4 hours a night. She did bring the download card although we cannot read the card. She will bring her machine It for the next visit. In view of the worsening hypoxia will go ahead and request blood work. 01/08/2023 the the patient is here again for follow-up visit. She still complains of dyspnea on exertion. Moderate severity. She is scheduled to follow-up with cardiology. She does have some degree of cardiomyopathy and was scheduled for cardiac. But now is on hold. Therefore, she will follow-up with cardiology and likely get an echocardiogram. She continues to be on Trelegy inhaler. She also brought her CPAP. Her AHI is up to 3. Her average pressure is 10. I did adjust the APAP to 6-12. The patient will try this and then will increase accordingly. I do not believe that her obstructive sleep apnea is resulting in her shortness of breath however. Will try to improve those numbers anyway. The patient still having shortness of breath and did go for brief walking test today she is still desaturating down to 92%. On examination she does have some rales on the right mid lung area. Mainly in late inspiration. Her last CT scan was last year for pulmonary nodules and now with the evidence of crackles on examination and her hypoxia will go ahead and repeat the CT scan. I did request a D-dimer which was negative for therefore irregular noncontrast CT scan will be sufficient for on needs. In the meantime view of her ongoing symptoms will be reasonable to treated with a short course of prednisone to see there is improvement of her symptoms and also to see if it improves the findings on her CT scan. 03/12/2023 the patient is here for a pulmonary follow-up visit. She is feeling a little better. Although her pulse ox continues to be a little bit on the lower side for her. Her chest tightness is improved a little bit and she still has the shortness of breath. She did follow-up with the Cardiology and did undergo an echocardiogram which was told that was okay and now will be undergoing a cardiac PET scan. She did complete the prednisone. She did also have a CT scan of the chest which we personally reviewed. Her pulmonary nodules are stable although does have have some increased interstitial changes at the bases right more than left. Indeed she still has some crackles in that area. These interstitial changes are new suggesting an evolving process. The changes are minimal but is suspecting that this is resulting in her decreased oxygen supplementation and her ongoing symptoms. Will have her undergo blood work to assess for different etiologies for the interstitial lung condition. 06/16/2023 the patient is here for pulmonary follow-up visit. She continues to be about the same, complaining of dyspnea on exertion. [id number] severity. She did not respond to the Trelegy inhaler. She does better with the rescue inhaler. The patient also had a CT scan demonstrating some interstitial changes. Her blood work was all negative for any connective tissue diseases or hypersensitivity reactions. Will have to monitor those changes. Her pulmonary nodules have been stable which is reassuring. Her last pulmonary function study was back from December 2021. At this point in view of her persistent symptoms repeating the PFTs will be warranted. Will also optimize her respiratory treatment switching over to an HFA. The patient also has been using her CPAP. She did bring it in. Her AHI still slightly elevated around 3. It appears that her average pressure is 11.9 and her machine is only set up to go to 12. Explained to the patient that she would need a higher pressure. Although I will increase the just slightly to make sure that she continues to tolerate appeared. If she does tolerate the pressures but she thinks she needs further elevations she can always call me and I can adjust the machine. Right now we increase that from 6-12 to 05/10/2013. Should be switched to the breztri inhaler have PFTs will follow-up in 3-4 months. 11/10/2023 the patient is here for for pulmonary follow-up visit. Overall she is doing better. She is responding well to the breztri inhaler. She has not required her rescue inhaler. She still gets shortness of breath with activity [id number] severity. But overall she is doing well. She is trying to work on weight management. She tried some lifestyle changes and she will continue to do so. The patient did have pulmonary function studies in the office which we personally reviewed. Compared to 2020 there appears to be some improvement in her FVC and also in the FEV1 which is reassuring. She still has a mild restriction and mild diffusion impairment. Although they should not be enough to cause her to have significant symptoms I did review her last CT scan of the chest that she had and it does demonstrate some areas of haziness suggesting more of atelectasis more than pneumonitis or interstitial abuse. The patient has been using her CPAP. The CPAP therapy continues to be affecting b eneficial and she does use it every night. No changes there. Will follow-up in 6 months unless any new issues arise the patient will call for an earlier assessment 05/17/2024 the patient is here for a pulmonary follow-up visit. The patient overall has been doing well. 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 She has been on th e Breztri inhaler but she actually noticed that her breathing got worse while on it. Therefore she stopped it. She does get a better response to regular albuterol. Although she is having to use the albuterol on a daily basis. Will go ahead and switch her over to Symbicort with the hopes that this will be more effective in treating her symptoms without any adverse effects. The patient also continues to use her CPAP. The CPAP therapy continues to be affecting beneficial. She does by supplies. She does get a nasal mask regularly. She is concerned because sometimes she feels like she has not getting of oxygen at nighttime. Will plan to do an overnight oximetry at this time while she has wearing the CPAP. If indeed she demonstrates evidence of hypoxia will have to talk about a titration study but will discuss that if his abnormal. Further recommendation based on forthcoming data. [facility] Medical History (Updated 11/10/23 @ 21:10 by Bharat Knight MD) VIVIENNE on CPAP Pulmonary nodules Lymphadenopathy Asthma-COPD overlap syndrome Social History Patient Tobacco Use Status: Never used Tobacco Review of Systems Const Denies night sweats ENT Denies change in voice, Denies lip swelling, Denies mouth pain, Reports nasal congestion, Reports nasal discharge and Denies tongue swelling Card Denies chest pain, Reports leg edema and Reports dyspnea on exertion Resp Reports cough and Reports dyspnea on exertion GI Denies abdominal pain Musc Denies no additional complaints Neuro Denies Neuro-related abnormal movements Psych Denies no additional complaints Kemar/Lymph Denies easy bleeding and Denies lymphadenopathy Aller/Immun Denies lip swelling and Denies tongue swelling Physical Exam Vital Signs: Last Vital Signs Pulse 59 05/17/24 11:06 Pulse Ox 96 05/17/24 11:06 Oxygen Delivery Method Room Air 05/17/24 11:06 BMI result Body Mass Index 42.6 Const General: alert HEENT General nose exam: Abnormal external nose present and Nasal discharge present Eyes Pupils: Equal, round and reactive pupils present Neck Neck: Yes normal visual inspection, Yes full ROM and Yes no lymphadenopathy Chest Chest palpation & inspection: normal inspection of the chest Resp Auscultation: no rales, no rhonchi, no wheezes and diminished lung sounds Cardio Rate: regular rate Rhythm: regular rhythm Heart sounds: S1 normal heart sound present and S2 normal heart sound present GI Palpation (GI): Soft to palpation and nontender Auscultation: normal bowel sounds General: Yes no CVA tenderness Back/Spine/Pelvis Back: no CVA tenderness Skin General skin exam: rashes and/or lesions noted Neuro Cranial nerves: Yes Equal, round and reactive pupils present Extrem General: Yes edema Assessment & Plan Assessment & Plan (1) Asthma-COPD overlap syndrome: Code(s): J44.9 - Chronic obstructive pulmonary disease, unspecified Category: Medical (2) Lymphadenopathy: Code(s): R59.1 - Generalized enlarged lymph nodes Category: Medical (3) Pulmonary nodules: Code(s): R91.8 - Other nonspecific abnormal finding of lung field Category: Medical (4) VIVIENNE on CPAP: Code(s): G47.33 - Obstructive sleep apnea (adult) (pediatric); Z99.89 - Dependence on other enabling machines and devices Category: Medical (5) ILD (interstitial lung disease): Comment: looks like atelectasis more than ILD Code(s): J84.9 - Interstitial pulmonary disease, unspecified Category: Medical Plan stop Breztri start Symbicort JAVAD as needed Continue APAP, adjusted 6-12 to 7-13 ([employer], buys her supplies) Nasal mask overnight oximetry on CPAP F/U 6 months Orders: Orders Overnight Pulse Oximetry Today J44.9 - Chronic obstructive pulmonary disease, unspecified Medications: New budesonide-formoterol 160-4.5 mcg/actuation (Symbicort) 2 puffs inhalation BID 10.2 grams 11RF 30 days J44.89 - Other specified chronic obstructive pulmonary disease Coding Level of Care Code Est Pt Level 4 (91570) Diagnoses Asthma-COPD overlap syndrome J44.9 Lymphadenopathy R59.1 Pulmonary nodules R91.8 VIVIENNE on CPAP G47.33; Z99.89 ILD (interstitial lung disease) J84.9 Time Spent (min) 16
== END 2024-05-17 11:28 | disposition home or self-care (01) ==
PROVIDERS: PCP Internal Medicine; Visit Provider Hospitalist
DX: J44.9 Chronic obstructive pulmonary disease, unspecified (principal); R59.1 Generalized enlarged lymph nodes; R91.8 Other nonspecific abnormal finding of lung field; G47.33 Obstructive sleep apnea (adult) (pediatric); Z99.89 Dependence on other enabling machines and devices; J84.9 Interstitial pulmonary disease, unspecified
CPT/HCPCS: 99214

== ENCOUNTER → 2024-05-17 10:50 | Outpatient (BNVA) | payer BC, SELFPAY | PROVIDERS: PCP Internal Medicine; Visit Provider Hospitalist ==

== ENCOUNTER 2024-06-15 14:24 | Outpatient (AMB) | payer BC, SELFPAY ==
--- NOTE | 2024-06-15 14:30 | MHC.OFFVIS ---
Vital Signs 06/15/24 14:41 Height 5 ft 4 in Weight 257 lb 2 oz BMI 44.1 BP 130/82 Blood Pressure Location Lt brachial Position Sitting Respiration 16 Pulse 102 H Pulse Source Pulse Oximeter Pulse Oximetry (%) 98 Oxygen Delivery Method Room Air Intake Visit Reasons: Low Back Pain Intake Note: Patient comes in for initial visit was referred by [facility] primary care. Reports pain 9/10. Allergies lisinopril Allergy (Severe, Verified 05/17/24 11:08) Anaphylaxis HPI Comments Details: Martha Barron is very pleasant 63 years old female who presents in my office with complains on pain in the with radiation into the left lower extremity all the way to the left ankle but not below that level she also complains on pain in the left hip with walking a with radiation of the pain into the left groin. She reports that this to pain started about 8 weeks ago. Many years she was suffering from chronic neck lower back pain, for which she was treated with local chiropractor and she received MRI of the lumbar spine. She reports her pain today 9/10. She reports that she can not sleep normally because of her pain can not do activities of daily living she can take care of herself, but she can not function normally. She is working full-time as a nurse in the school system at this time she is not working because of the school vacation time. She is self mobile and ambulate without assistance. She reports that movements aggravate her pain. She reports that cold applications topical medications and oral meds make her pain better. The pain is worse in the morning and less severe in the early evening. In terms of tissue damage he reports her pain is pulsing throbbing pounding, stabbing lancinating, sharp cutting lacerating sensation. She had as it was said before MRI at [facility] however I was not able to obtain the record. She also had x-ray of the left hip. She had multiple sessions of physical therapy 4 year she was seen by chiropractic locally she received massage therapy acupuncture therapy and 10s unit. She also received some injections she thinks that there were epidural with [employer] [facility] her past medical history significant for morbid obesity hypertension severe fatigue shortness of breath interstitial lung disease she is under care of Dr. Knight. She reports low kidney function digestive problems and she recently was diagnose with rheumatoid arthritis. She reports congestive heart failure however she does not know her last number of ejection fraction. She reports concentrate shortness of breath. Her BMI is 44.1 kilogram/meter sq. Her past surgical history significant for gallbladder surgery and heart failure procedure in 2016. She denies smoking cigarettes admits drinking a shot of whiskey every night drinks caffeinated beverages 2 drinks of tea a day she admits using cannabis 2. gummies a day. She denies other recreational drugs. [facility] Medical History (Updated 06/15/24 @ 16:06 by Mateo Ivan MD) VIVIENNE on CPAP Pulmonary nodules Lymphadenopathy Asthma-COPD overlap syndrome Social History Patient Tobacco Use Status: Never used Tobacco Review of Systems Const All systems reviewed & are unremarkable except as noted in HPI and below Reports daytime sleepiness and Reports fatigue ENT Reports Normal hearing present Card Reports as per HPI Resp Reports as per HPI GI Reports as per HPI Reports no additional complaints Musc Reports as per HPI Neuro Reports Normal hearing present, Denies Abnormal speech present, Denies confusion and Denies Sensory deficit (Neuro) Psych Denies confusion Endo Reports fatigue Physical Exam Vital Signs: Last Vital Signs Pulse 102 H 06/15/24 14:41 Resp 16 06/15/24 14:41 BP 130/82 06/15/24 14:41 Pulse Ox 98 06/15/24 14:41 Oxygen Delivery Method Room Air 06/15/24 14:41 BMI result Body Mass Index 44.1 Const General: no acute distress; No confusion Nutritional Appearance: obese morbidly obese Orientation/consciousness: patient oriented x3 and No confusion Eyes General: appearance normal, both eyes and all related structures Pupils: Equal, round and reactive pupils present EOM: EOMs intact bilaterally Neck Neck: Yes full ROM Chest Chest palpation & inspection: normal inspection of the chest Resp Effort & Inspection: normal respiratory effort, able to speak in complete sentences, normal respiratory pattern, no audible wheezes and no cough Cardio Jugular venous distension: no JVD GI Inspection: Yes normal to inspection Back/Spine/Pelvis Other: Exhibit antalgic gait on the left. Able to stand on bilateral tiptoes in bilateral heels without difficulty. Attempt to perform Syed test is severely painful. Attempt to perform Gaenslen test on the left is very severely painful. Unable to perform pelvic compression pelvic distraction test due to significant obesity. Fourteen finger test is positive on the left. SLR is off equivocal bilaterally. Valsalva maneuver is negative bilaterally. Able to flex herself forward, unable to flex herself at all backwards. Loading test although negative bilaterally. Neuro General: patient oriented x3, gait normal and No confusion Cranial nerves: Yes CN's II-XII intact bilaterally, Yes Equal, round and reactive pupils present, Yes Normal hearing present and Yes Ability to bilaterally elevate shoulders present Speech: No Abnormal speech present Gait exam (Neuro): Normal gait present Motor exam (neuro): 5/5 motor strength present throughout Sensory Exam: No Sensory deficit (Neuro) Extrem General: No pedal edema Psych Speech and movement: Normal speech and movement present Affect: normal affect Attitude: cooperative Thought process: Normal thought process present Thought content: Normal thought content present Insight: Good insight present (Psych) Judgement: Good judgement present (Psych) Assessment & Plan Assessment & Plan (1) Sacroiliitis: Code(s): M46.1 - Sacroiliitis, not elsewhere classified Category: Medical (2) Sacroiliac joint dysfunction of left side: Code(s): M53.3 - Sacrococcygeal disorders, not elsewhere classified Category: Medical (3) Arthritis of left hip: Code(s): M16.12 - Unilateral primary osteoarthritis, left hip Category: Medical (4) Morbid obesity: Code(s): E66.01 - Morbid (severe) obesity due to excess calories Category: Medical Plan For this time I would diagnose this patient with sacroiliac joint dysfunction on the left and left hip arthritis. I can offer this patient diagnostic sacroiliac joint injection and evaluation after the procedure. She promised to send us the report of the MRI of the lumbar spine. The procedure apparently was done at [facility] however I was not able to discover the reports of the procedure using my access to [facility]. Patient Instructions: I here by testify that I spent 45 minutes in conversation with this patient as well as planning her care and organizing this note as well as trying to find the MRI at the site of the procedure. Coding Level of Care Code New Pt Level 4 (74495) Diagnoses Sacroiliitis M46.1 Sacroiliac joint dysfunction of left side M53.3 Arthritis of left hip M16.12 Morbid obesity E66.01
[2024-06-15 14:41] VITALS: BP 130/82; PULSE 102; RESP 16; O2SAT 98; BMI 44.1
== END 2024-06-15 15:23 | disposition home or self-care (01) ==
PROVIDERS: PCP Internal Medicine; Visit Provider Anesthesiology
DX: M46.1 Sacroiliitis, not elsewhere classified (principal); M53.3 Sacrococcygeal disorders, not elsewhere classified; M16.12 Unilateral primary osteoarthritis, left hip; E66.01 Morbid (severe) obesity due to excess calories
CPT/HCPCS: 99204

== ENCOUNTER → 2024-06-15 14:24 | Outpatient (BNVA) | payer BC, SELFPAY | PROVIDERS: PCP Internal Medicine; Visit Provider Anesthesiology ==

== ENCOUNTER 2025-05-10 10:15 | Outpatient (AMB) | payer BC, SELFPAY ==
[2025-05-10 10:17] VITALS: BP 116/60; PULSE 64; O2SAT 97; BMI 38.6
--- NOTE | 2025-05-10 10:17 | MHC.OFFVIS ---
Vital Signs 05/10/25 10:17 Height 5 ft 4 in Weight 224 lb 13.944 oz BMI 38.6 BP 116/60 Blood Pressure Location Lt brachial Position Sitting Pulse 64 Pulse Source Pulse Oximeter Pulse Oximetry (%) 97 Oxygen Delivery Method Room Air Intake Visit Reasons: COPD Pocket Creaser Required: No Accompanied by: Self / Same As Patient Allergies lisinopril Allergy (Severe, Verified 05/10/25 15:52) Anaphylaxis HPI Comments Details: The patient is a 64-year-old woman with a history of COPD in addition to dyspnea and chest discomfort. She responded very well to the Trelegy inhaler. She has not had to use her rescue inhaler. She it does relieve her dyspnea and also relieve some of the chest pressure. She notices that her oxygen levels during the daytime are in the low 90s. At nighttime she does use CPAP the CPAP therapy continues to be a very effective in beneficial. She does use the CPAP more than 4 hours a night. She did have a CT scan of the chest which we personally reviewed back in May 2019demonstrating small pulmonary nodules that do any follow-up. For but she also has test suggestive of the possibility of pulmonary hypertension. Therefore, she should have a echocardiogram. She does have a director of primary care in this was something the were planned to do. In the meantime the patient is doing very well on her respiratory therapy. Denies any significant shortness of breath and wheezing. She is scheduled for another CT scan in May of this year to follow up with her pulmonary nodules. 01/09/2021 The patient is here for a pulmonary follow up visit. Overall doing well. Having dyspnea on exertion, mild in severity. Symptoms overall better on the Trelegy inhaler. Has not required any Prednisone. Her PAP therapy continues to be effective and beneficial. She uses it more than 4 hours a night. I did request that her [employer] company sent over a download. She does wake up rested and denies any headaches. The [employer] company never delivered the device. At this point we can hold off on it. We did review her last 2 CT chest from [facility]. She has a couple subcentemeter pulmonary nodules that appear stable when compared to 2019. However, She does have mediastinal lymphadenopathy with station [address] measuring a little more than 1cm. Based on the the findings, I will request a CT chest in 6-8 months. 01/16/2022 the patient is here for a pulmonary follow-up visit. She continues to have the dyspnea symptoms. Initially better on the Trelegy but not since completely improved. She has been trying to lose weight. The patient did undergo pulmonary function studies that I personally reviewed with her. It appears that she does not have an obstructive ventilatory defect, although, she does have a mild restrictive ventilatory defect associated with mild diffusion impairment. She also had a CT scan of the chest that we were able to look at and ruled out any interstitial lung disease that could be contributing to the restriction. At this point is more likely to be related to body habitus. I did encourage her for her to continue to exercising weight management and her symptoms should improve. In the meantime with and also increase her Trelegy to the maximum dose. As far as her pulmonary nodules the patient does have underlying pulmonary nodules that need to be continued to be followed. No acute changes at this time. She does have some slight lymphadenopathy but minimal. In addition to that she does have a CPAP. She does have an old [email or web address] which now is recall. She did not know about the recall. She was going to look into it I did provide her with the information in order for her to register her machine so she can get a replacement machine. When she gets a replacement machine can not adjust the pressures. Currently her CPAP is set up a CPAP of 9 cm. She is using a nasal mask. I cannot get an AHI but she clinically is doing well feels well on it. Hopefully when she does any machine we can download it and get proper apnea-hypopnea index. 06/02/2022 the patient is here for a pulmonary follow-up visit. She continues to have dyspnea symptoms. Moderate severity. Primarily with activity. She did have a 6 minutes walk test today which was reassuring. She continues use her CPAP with good effect. The CPAP therapy continues to be affecting beneficial. She also continues on maximum respiratory therapy for her obstructive airway disease. The patient does have increased swelling her lower extremities. My suspicion is that she is volume overloaded. Therefore will trial some Lasix to see if she improves her lower extremity swelling and also her symptoms of dyspnea. Will going to continue on the Trelegy at this time. Once the patient completes the Lasix it is reasonable to check her basic metabolic panel to make sure that she does not have any electrolyte derangements. once she completes the bases he can go back on her regular medication. 12/11/2022 the patient is here for a pulmonary follow-up visit. She still continues to complaint of dyspnea on exertion. Again moderate severity. Hard to do her activities of daily living. We again underwent a 6 minute walk testing this time she did desaturate down to to 90% with activity which is lower than before. She still has significant lower extremity edema. She was placed on a mild diuretic. Previously we had given her several days of Lasix to try to improve her volume status. The patient is currently being evaluated for some degree of cardiomyopathy. She is scheduled for cardiac PET. She did have the cardiac PET but then the machine lost the data and therefore she is rescheduled to undergo that. She continues to use the Trelegy inhaler. she has not had to use his rescue inhaler. The patient also continues with her CPAP therapy if therapy has been affecting beneficial. She does use it more than 4 hours a night. She did bring the download card although we cannot read the card. She will bring her machine It for the next visit. In view of the worsening hypoxia will go ahead and request blood work. 01/08/2023 the the patient is here again for follow-up visit. She still complains of dyspnea on exertion. Moderate severity. She is scheduled to follow-up with cardiology. She does have some degree of cardiomyopathy and was scheduled for cardiac. But now is on hold. Therefore, she will follow-up with cardiology and likely get an echocardiogram. She continues to be on Trelegy inhaler. She also brought her CPAP. Her AHI is up to 3. Her average pressure is 10. I did adjust the APAP to 6-12. The patient will try this and then will increase accordingly. I do not believe that her obstructive sleep apnea is resulting in her shortness of breath however. Will try to improve those numbers anyway. The patient still having shortness of breath and did go for brief walking test today she is still desaturating down to 92%. On examination she does have some rales on the right mid lung area. Mainly in late inspiration. Her last CT scan was last year for pulmonary nodules and now with the evidence of crackles on examination and her hypoxia will go ahead and repeat the CT scan. I did request a D-dimer which was negative for therefore irregular noncontrast CT scan will be sufficient for on needs. In the meantime view of her ongoing symptoms will be reasonable to treated with a short course of prednisone to see there is improvement of her symptoms and also to see if it improves the findings on her CT scan. 03/12/2023 the patient is here for a pulmonary follow-up visit. She is feeling a little better. Although her pulse ox continues to be a little bit on the lower side for her. Her chest tightness is improved a little bit and she still has the shortness of breath. She did follow-up with the Cardiology and did undergo an echocardiogram which was told that was okay and now will be undergoing a cardiac PET scan. She did complete the prednisone. She did also have a CT scan of the chest which we personally reviewed. Her pulmonary nodules are stable although does have have some increased interstitial changes at the bases right more than left. Indeed she still has some crackles in that area. These interstitial changes are new suggesting an evolving process. The changes are minimal but is suspecting that this is resulting in her decreased oxygen supplementation and her ongoing symptoms. Will have her undergo blood work to assess for different etiologies for the interstitial lung condition. 06/16/2023 the patient is here for pulmonary follow-up visit. She continues to be about the same, complaining of dyspnea on exertion. [id number] severity. She did not respond to the Trelegy inhaler. She does better with the rescue inhaler. The patient also had a CT scan demonstrating some interstitial changes. Her blood work was all negative for any connective tissue diseases or hypersensitivity reactions. Will have to monitor those changes. Her pulmonary nodules have been stable which is reassuring. Her last pulmonary function study was back from December 2021. At this point in view of her persistent symptoms repeating the PFTs will be warranted. Will also optimize her respiratory treatment switching over to an HFA. The patient also has been using her CPAP. She did bring it in. Her AHI still slightly elevated around 3. It appears that her average pressure is 11.9 and her machine is only set up to go to 12. Explained to the patient that she would need a higher pressure. Although I will increase the just slightly to make sure that she continues to tolerate appeared. If she does tolerate the pressures but she thinks she needs further elevations she can always call me and I can adjust the machine. Right now we increase that from 6-12 to 05/10/2013. Should be switched to the breztri inhaler have PFTs will follow-up in 3-4 months. 11/10/2023 the patient is here for for pulmonary follow-up visit. Overall she is doing better. She is responding well to the breztri inhaler. She has not required her rescue inhaler. She still gets shortness of breath with activity [id number] severity. But overall she is doing well. She is trying to work on weight management. She tried some lifestyle changes and she will continue to do so. The patient did have pulmonary function studies in the office which we personally reviewed. Compared to 2020 there appears to be some improvement in her FVC and also in the FEV1 which is reassuring. She still has a mild restriction and mild diffusion impairment. Although they should not be enough to cause her to have significant symptoms I did review her last CT scan of the chest that she had and it does demonstrate some areas of haziness suggesting more of atelectasis more than pneumonitis or interstitial abuse. The patient has been using her CPAP. The CPAP therapy continues to be affecting beneficial and she does use it every night. No changes there. Will follow-up in 6 months unless any new issues arise the patient will call for an earlier assessment 05/17/2024 the patient is here for a pulmonary follow-up visit. The patient overall has been doing well. 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 She has been on the Breztri inhaler but she actually noticed that her breathing got worse while on it. Therefore she stopped it. She does get a better response to regular albuterol. Although she is having to use the albuterol on a daily basis. Will go ahead and switch her over to Symbicort with the hopes that this will be more effective in treating her symptoms without any adverse effects. The patient also continues to use her CPAP. The CPAP therapy continues to be affecting beneficial. She does by supplies. She does get a nasal mask regularly. She is concerned because sometimes she feels like she has not getting of oxygen at nighttime. Will plan to do an overnight oximetry at this time while she has wearing the CPAP. If indeed she demonstrates evidence of hypoxia will have to talk about a titration study but will discuss that if his abnormal. Further recommendation based on forthcoming data. 05/10/2025 the patient is here for pulmonary follow-up visit. She is complaining of worsening dyspnea on exertion. Moderate severity. She just came back from a cruise and she had a hard time ambulating. She was in the [place]. She does have Breztri inhaler. She does feel like it is partially helpful. She also has a rescue inhaler. She also has a bad hip so it is difficult for her to ambulate. We did go for brief walking oximetry and she did have some issues with desaturation down to about 90% which is unusual for her. Heart rate was stable. Did review her last PFTs from 2022 demonstrating a mild restrictive ventilatory defect. I did not appreciate any significant wheezing on exam so I do not believe is significant bronchospasms causing the worsening presentation. Therefore, have her get blood work including a D-dimer to make sure she has not had any issues with thromboembolic disease. In the meantime she also has underlying pulmonary nodules. If her D-dimer is negative will still get a CT scan noncontrast to better address her pulmonary nodules and pulmonary parenchyma. Have her get PFTs as well prior to the next visit in 3 months. She will continue with the Breztri for now. She will follow-up with orthopedic surgery regarding her bad hip. Addendum: Her bloodwork came back concerning with +ddimer,ARF and electrolyte abnormalities. She did call her PCP and with our recommendations she did seek medical care in the ED. [facility] Medical History (Updated 05/10/25 @ 18:09 by Bharat Knight MD) Hypoxia VIVIENNE on CPAP Pulmonary nodules Lymphadenopathy Asthma-COPD overlap syndrome Social History Patient Tobacco Use Status: Never used Tobacco Advance Directives: No Advance Directives Information Provided: No Do you have a plan to hurt others: No Plan Review of Systems Const Reports fatigue and Denies night sweats ENT Denies change in voice, Reports dry mouth, Denies lip swelling, Denies mouth pain, Reports nasal congestion, Reports nasal discharge and Denies tongue swelling Card Denies chest pain, Reports leg edema and Reports dyspnea on exertion Resp Reports cough and Reports dyspnea on exertion GI Denies abdominal pain Musc Denies no additional complaints Skin/Breast Denies rash Neuro Denies Neuro-related abnormal movements Psych Denies no additional complaints Endo Reports fatigue Kemar/Lymph Denies easy bleeding and Denies lymphadenopathy Aller/Immun Denies lip swelling and Denies tongue swelling Physical Exam Vital Signs: Last Vital Signs Pulse 64 05/10/25 10:17 BP 116/60 05/10/25 10:17 Pulse Ox 97 05/10/25 10:17 Oxygen Delivery Method Room Air 05/10/25 10:17 BMI result Body Mass Index 38.6 Const General: alert HEENT General nose exam: Abnormal external nose present and Nasal discharge present Eyes Pupils: Equal, round and reactive pupils present Neck Neck: Yes normal visual inspection, Yes full ROM and Yes no lymphadenopathy Chest Chest palpation & inspection: normal inspection of the chest Resp Auscultation: no rales, no rhonchi, no wheezes and diminished lung sounds Cardio Rate: regular rate Rhythm: regular rhythm Heart sounds: S1 normal heart sound present and S2 normal heart sound present GI Palpation (GI): Soft to palpation and nontender Auscultation: normal bowel sounds General: Yes no CVA tenderness Back/Spine/Pelvis Back: no CVA tenderness Skin General skin exam: rashes and/or lesions noted Neuro Cranial nerves: Yes Equal, round and reactive pupils present Extrem General: Yes edema Assessment & Plan Assessment & Plan (1) Asthma-COPD overlap syndrome: Code(s): J44.9 - Chronic obstructive pulmonary disease, unspecified Category: Medical (2) Lymphadenopathy: Code(s): R59.1 - Generalized enlarged lymph nodes Category: Medical (3) Pulmonary nodules: Code(s): R91.8 - Other nonspecific abnormal finding of lung field Category: Medical (4) VIVIENNE on CPAP: Code(s): G47.33 - Obstructive sleep apnea (adult) (pediatric); Z99.89 - Dependence on other enabling machines and devices Category: Medical (5) ILD (interstitial lung disease): Comment: looks like atelectasis more than ILD Code(s): J84.9 - Interstitial pulmonary disease, unspecified Category: Medical (6) Dyspnea: Code(s): R06.00 - Dyspnea, unspecified Category: Medical Qualifiers: Dyspnea type: dyspnea on exertion Qualified Code(s): R06.09 - Other forms of dyspnea (7) Blood D-dimer assay positive: Code(s): R78.89 - Finding of other specified substances, not normally found in blood Category: Medical (8) Hypoxia: Code(s): R09.02 - Hypoxemia Category: Medical Plan continue Breztri JAVAD as needed Continue APAP, adjusted 6-12 to 7-13 ([employer], buys her supplies) Nasal mask R/O PE with nuclear perfusion scan Will need further evaluation for ARF and electrolyte abnormalities F/U 3 months Orders: Orders Erythrocyte Sedimentation Rate Today R06.00 - Dyspnea, unspecified Complete Blood Count Auto Diff Today R06.00 - Dyspnea, unspecified Troponin-I High Sensitivity Today R06.00 - Dyspnea, unspecified NM pul perfusion Today I26.99 - Other pulmonary embolism without acute cor pulmonale, R06.00 - Dyspnea, unspecified, R09.02 - Hypoxemia, R78.89 - Finding of other specified substances, not normally found in blood PFT pulmonary function test Today R06.09 - Other forms of dyspnea D Dimer High Sensitivity Today R06.00 - Dyspnea, unspecified Basic Metabolic Panel Today R06.00 - Dyspnea, unspecified XR chest 2V Today R06.00 - Dyspnea, unspecified, R09.02 - Hypoxemia, R78.89 - Finding of other specified substances, not normally found in blood Coding Level of Care Code Est Pt Level 5 (03036) Diagnoses Asthma-COPD overlap syndrome J44.9 Lymphadenopathy R59.1 Pulmonary nodules R91.8 VIVIENNE on CPAP G47.33; Z99.89 ILD (interstitial lung disease) J84.9 Dyspnea on exertion R06.09 Dyspnea type: dyspnea on exertion Blood D-dimer assay positive R78.89 Hypoxia R09.02 Time Spent (min) 60
--- OUTSIDE RECORDS SUMMARY | 2025-05-10 10:49 | XMS_ITS | Data Portability ---
Author Organization [place] [facility] Lupe Holguin [place] Address [address] [place] [address] Care Team Providers Care Custom Van Converter Name Role Phone MARGY BEST Primary Care Provider Assessment Encounter Date Assessment Date Assessment LastModified by Organization Details LastModified Time 01/21/2024 01/21/2024 63-year-old fema le with bilateral degenerative joint disease both knees who is trying to stave off surgery as long as possible. She gets good relief with cortisone injections. She opted for bilateral cortisone injections of the knees at today's visit. After verbal consent was obtained. The procedures were carried out individually bilaterally. She tolerated the procedures well. Aftercare instructions were discussed in detail. Follow-up visit 3 months time for repeat clinical exam. Should her symptoms not improve or worsen she should contact my office immediately. She agrees with this plan. Patient was seen and evaluated by Ashok Botello PA-C in indirect conjuction with Documenting Provider: Apolinar Portillo MD . He/She agrees with history, physical examination, tests/diagnostic imaging, and treatment plan. Additional treatment plan discussed with the patient (only initiated if in boldface font) otherwise not applicable. Treatment may include the following; - Provider focused nonsteroidal anti-inflammatory regimen (discussed were the pros, cons, benefits and risks as well as any black box warnings) in patients over 60 years old they should be very cautious in taking these medications due to potential decreased kidney function and or elevated blood pressure. - Analgesic pain medication for pain suppression (discussed were the pros, cons, benefits and risks as well as any black box warnings) - The use of topical pain relieving medication were discussed - The use of ice to decrease inflammation and pain - The use of assistive ambulatory devices for ambulation and fall prevention - Formal specific guided physical therapy program I reviewed my findings at length with the patient today. We discussed the nature and etiology of this problem along with current treatment options. We discussed the expected course and outcomes and what to expect. We also discussed risks and benefits. All of their questions were answered today, and there was exhibited understanding and comprehension of all that was discussed. Time Spent: 10 minutes were spent reviewing previous imaging and charting. 10 minutes were spent obtaining patient history. 5 minutes were spent on physical exam. 5minutes were spent explaining diagnosis and assessment. Today's documentation was made using voice recognition software. This note may contain grammatical errors secondary to the software. Not available 01/22/2024 08:04:57 05/05/2024 05/05/2024 63-year-old fema le with bilateral knee pain secondary to advanced osteoarthritis. After discussion regarding treatment options she wishes to trial viscosupplementation injections. Follow-up pending insurance authorization. This patient was seen and evaluated by Ashok Simental MS, PA-C in indirect conjunction with documenting/supervisin g provider Apolinar Portillo MD. He agrees with history, physical examination, tests/diagnostic imaging, and treatment plan. This document was generated using voice recognition software. As a result, there may be unintended spelling, grammatical and/or textual errors. Not available 05/05/2024 11:50:57 08/16/2024 08/16/2024 HPI: Patient presents for 1st viscosupplementation injection for the treatment of bilateral knee pain. All questions are answered to the patient's satisfaction. Exam: Knee(s) examined to show no sign of infection. Skin is intact. Score of 2 or more on Kellgren Melchor scale. Tenderness to palpation of joint line. Distal checks are intact. Assessment/Plan: Knee pain secondary to osteoarthritis. See the attached procedure note. Follow up per viscosupplementation protocol. Follow up sooner with any problems. This patient was seen and evaluated by Ashok Simental MS, PA-C in indirect conjunction with documenting/supervisin g provider Apolinar Portillo MD. He agrees with history, physical examination, tests/diagnostic imaging, and treatment plan. Not available 08/16/2024 16:14:51 08/23/2024 08/23/2024 HPI: Patient presents for 2nd viscosupplementation injection for the treatment of bilateral knee pain. All questions are answered to the patient's satisfaction. Exam: Knee(s) examined to show no sign of infection. Skin is intact. Score of 2 or more on Kellgren Melchor scale. Tenderness to palpation of joint line. Distal checks are intact. Assessment/Plan: Knee pain secondary to osteoarthritis. See the attached procedure note. Follow up per viscosupplementation protocol. Follow up sooner with any problems. This patient was seen and evaluated by Ashok Simental MS, PA-C in indirect conjunction with documenting/supervisin g provider Apolinar Portillo MD. He agrees with history, physical examination, tests/diagnostic imaging, and treatment plan. Not available 08/23/2024 15:51:52 08/30/2024 08/30/2024 HPI: Patient presents for 3rd Euflexxa viscosupplementation injection for the treatment of bilateral knee pain. All questions are answered to the patient's satisfaction. Exam: Knee(s) examined to show no sign of infection. Skin is intact. Score of 2 or more on Kellgren Melchor scale. Tenderness to palpation of joint line. Distal checks are intact. Assessment/Plan: Knee pain secondary to osteoarthritis. See the attached procedure note. Follow up per viscosupplementation protocol. Follow up sooner with any problems. This patient was seen and evaluated by Ashok Simental MS, PA-C in indirect conjunction with documenting/supervisin g provider Apolinar Portillo MD. He agrees with history, physical examination, tests/diagnostic imaging, and treatment plan. Not available 08/30/2024 15:58:32 Plan of Treatment Reminders Order Date Submit Date Provider Last Modified By Organization Details Last Modified Time Details Appointments INJECTION 2024 08:30A M ASHOK SIMENTAL PA-C Not available Not available Not available INJECTION 2024 08:30A M ASHOK SIMENTAL PA-C Not available Not available Not available INJECTION 2024 08:30A M ASHOK SIMENTAL PA-C Not available Not available Not available Lab None recorded. Referral None recorded. Procedures intra-art icular injection , knee, viscosupp lement (PROC) - Please check insurance for Visco Authoriza tion, insurance preferred med. Choose One: 3 series or 1 series prefer 1 shot Knee Lateralit y: Bilate ral 2023 snarus Not available 08/29/2024 11:31:08 Surgeries None recorded. Imaging XR, knee, 4 or more view 2023 [facility], [address], [address], [place], [address], 05/05/2024 12:43:15 XR, knee, 4 or more view 2023 [facility], [address], [address], [place], [address], 05/05/2024 12:43:15 Medication Orders Euflexxa 10 mg/mL (mw 2.4-3.6 million) intra-art icular syringe [address] [id number], [address] [place], [address], 08/30/2024 16:08:08 Euflexxa 10 mg/mL (mw 2.4-3.6 million) intra-art icular syringe [address] [id number], [address] [place], [address], 08/23/2024 15:50:59 Euflexxa 10 mg/mL (mw 2.4-3.6 million) intra-art icular syringe [address] [id number], [address] [place], [address], 08/23/2024 15:50:59 Euflexxa 10 mg/mL (mw 2.4-3.6 million) intra-art icular syringe 2023 024 Not available 08/18/2024 15:20:20 Euflexxa 10 mg/mL (mw 2.4-3.6 million) intra-art icular syringe 2023 Not available 08/18/2024 15:20:20 Kenalog 40 mg/mL suspensio n for injection [address] [facility], [address] [place], [address], 05/05/2024 13:08:40 lidocaine (PF) 100 mg/5 mL (2 %) injection syringe [address] [facility], [address] [place], [address], 05/05/2024 13:08:37 Kenalog 40 mg/mL suspensio n for injection [address] [facility], [address] [place], [address], 05/05/2024 13:08:40 lidocaine (PF) 100 mg/5 mL (2 %) injection syringe [address] [facility], [address] [place], [address], 05/05/2024 13:08:37 Patient TargetsNo targets recorded. Patient Instructions Encounter Date Encounter Id Patient Instructions Last Modified By Organization Details Last Modified Time 01/21/2024 [id number] You have been provided with a cortisone injection in order to reduce the pain and inflammation that you are experiencing. The injection consists of two medications. Cortisone (an anti-inflammatory that will take 48-72 hours to take effect) and Lidocaine (a numbing agent that will last 2-3 hours). Please note that not everyone will have a lasting response following the injection. PATIENT INSTRUCTIONS Once the Lidocaine wears off, you may have an increase in your pain. I recommend icing the affected area for 20 minutes 3-4 times per day. It is recommended that you refrain from any high level activities using the joint or limb that was injected for approximately 24-48 hours. Normal day-to-day activities are generally not a problem. POSSIBLE SIDE EFFECTS Individuals with dark complexions may experience some skin discoloration locally at the site of the injection. There is the possibility of an increase in discomfort within 48 hours following the injection. This is called a flare . To help minimize the chances of this, please see the post-injection instructions above. There is a less than 1% chance of an infection. If you notice any signs of infection (redness, warmth, drainage, fever greater than 100 degrees) please call our office or contact us through the portal [facility]. Not available 01/22/2024 08:04:04 05/05/2024 [id number] view X-ray liz dy obtained during today's office encounter show evidence of severe bilateral knee osteoarthritis. There is joint space narrowing, subchondral sclerosis and marginal osteophytosis. Kellgren-Melchor grade 3. No evidence of acute fracture or osteolytic findings. Not available 05/05/2024 11:51:50 Reason for Referral None Reported. Problems Name Problem SNOMED Code Status Onset Date Resolution Date Notes Provider Name and Address Organization Details Recorded Time Osteoarthri tis of right knee joint 5364070503393 00 Active 2022 Earnestine head, [place] [facility] 4 15:56:34 Osteoarthri tis of left knee joint 4220996977298 09 Active 2022 ASHOK BOTELLO PA-C [address] [facility],[address], [place], [address] , [place] [facility] 07:43:35 Problem Notes None recorded. Procedures Surgical History Date Name Laterality Status Provider Name and Address Organization Details Recorded Time 4 Euflexxa Knee Inj w/US completed ASHOK SIMENTAL PA-C [address], [place], [address], [place] [facility] 08/30/2024 15:58:11 4 Euflexxa Knee Inj w/US completed ASHOK SIMENTAL PA-C [address], [place], [address], [place] [facility] 08/23/2024 15:52:02 4 Euflexxa Knee Inj w/US completed ASHOK SIMENTAL PA-C [address], [place], [address], [place] [facility] 08/16/2024 16:14:38 4 Knee Joint/Bursa Asp & Inj completed ASHOK BOTELLO PA-C [address], [place], [address], [place] [facility] 01/22/2024 08:04:04 3 Knee Joint/Bursa Asp & Inj completed ASHOK BOTELLO PA-C [address], [place], [address], [place] [facility] 10/21/2023 07:41:57 3 Knee Joint/Bursa Asp & Inj completed ASHOK BOTELLO PA-C [address], [place], [address], [place] [facility] 06/02/2023 07:42:41 Imaging Results None recorded. Procedure Notes None recorded. Medical Equipment None Reported. Allergies Allergen ID Allergen Name Allergen Category Reaction Reaction Severity Criticality Documentation Date Start Date Code Code System Note Provider Name and Address Organization Details Recorded Time 6497 lisinopri l medicatio n Not available Not available Not available 06/02/2023 13976 RxNorm Earnestine head, [place] [facility] 10:55:46 Medications Name Sig Start Date Stop Date Status Note LastModified by Organization Details LastModified Time carvedilo l 6.25 mg tablet TAKE 1 TABLET BY MOUTH TWICE A DAY WITH MEALS 08/16 completed Not Available Not Available Not Available prednison e 10 mg tablet TAKE 3 TABS [id number] AYS,2TAB S [id number] AYS THEN 1 TAB [id number] AYS 06/02 completed Not Available Not Available Not Available carvedilo l 12.5 mg tablet TAKE 1 TABLET bid 2023 active Not Available Not Available Not Avai lable azithromy ladarius 250 mg tablet TAKE 2 TABLETS BY MOUTH TODAY, THEN TAKE 1 TABLET DAILY FOR 4 DAYS DIRECTED 10/20 completed Not Available Not Available Not Available ibuprofen 800 mg tablet TAKE 1 TABLET BY MOUTH THREE TIMES A DAY NEEDED 10/20 completed Not Available Not Available Not Available meloxicam 15 mg tablet TAKE 1 TABLET BY MOUTH EVERY DAY NEEDED FOR PAIN WITH FOOD 08/16 completed Not Available Not Available Not Available prednison e 20 mg tablet TAKE 2 TABLET BY ORAL ROUTE DAILY FOR 5 DAYS active Not Available Not Available No t Available sertralin e 100 mg tablet TAKE 1 TABLET BY MOUTH EVERYDAY AT BEDTIME active Not Available Not Available No t Available chlorthal idone 25 mg tablet TAKE 1 TABLET BY MOUTH EVERY DAY 08/16 completed Not Available Not Available Not Available amlodipin e 5 mg tablet TAKE 1 TABLET BY MOUTH EVERY DAY 06/02 completed Not Available Not Available Not Available omeprazol e 40 mg capsule,d elayed release TAKE 1 CAPSULE BY MOUTH EVERY DAY active Not Available Not Available No t Available spironola ctone 25 mg tablet TAKE 1 TABLET BY MOUTH EVERY DAY active Not Available Not Available No t Available Kenalog 40 mg/mL suspensio n for injection Take 1 mL by injectio n route. 05/05 completed Not Available Not Available Not Available levothyro xine 100 mcg tablet TAKE 1 TABLET BY MOUTH EVERY DAY active Not Available Not Available No t Available ofloxacin 0.3 % ear drops 06/02 completed Not Available Not Available Not Available amitripty line 10 mg tablet TAKE 1 AND 1/2 TABLET BY MOUTH AT BEDTIME DIRECTED active Not Available Not Available No t Available Lasix 20 mg tablet Take 1 tablet every day by oral route. active Not Available Not Available No t Available simvastat in 20 mg tablet TAKE 1 TABLET BY MOUTH EVERYDAY AT BEDTIME 10/20 completed Not Available Not Available Not Available albuterol sulfate HFA 90 mcg/actua tion aerosol inhaler INHALE 2 PUFFS BY MOUTH EVERY 6 HOURS NEEDED FOR SHORTNES S OF BREATH OR WHEEZING active Not Available Not Available No t Available cefdinir 300 mg capsule TAKE 1 CAPSULE BY MOUTH EVERY 12 HOURS FOR 10 DAYS 06/02 completed Not Available Not Available Not Available fluticaso ne propionat e 50 mcg/actua tion nasal spray,luca pension USE 1 TO 2 SPRAYS IN EACH NOSTRIL ONCE DAILY active Not Available Not Available No t Available doxycycli ne hyclate 100 mg tablet TAKE 1 TABLET BY MOUTH EVERY 12 HOURS FOR 10 DAYS active Not Available Not Available No t Available amoxicill in 875 mg-potass ium clavulana te 125 mg tablet 06/02 completed Not Available Not Available Not Available amoxicill in-potass ium clavulana te 1,000 mg-62.5 mg tablet,ex t.rel 12hr TAKE 1 TABLET BY MOUTH EVERY 12 HOURS WITH A MEAL FOR 7 DAYS 10/20 completed Not Available Not Available Not Available rosuvasta tin 20 mg tablet TAKE 1 TABLET BY MOUTH EVERY DAY 08/16 completed Not Available Not Available Not Available rosuvasta tin 40 mg tablet TAKE 1 TABLET BY MOUTH EVERY DAY active Not Available Not Available No t Available Euflexxa 10 mg/mL (mw 2.4-3.6 million) intra-art icular syringe Inject 10 mg by intra-ar ticular route for 21 days. 2023 active b/l knee 3of 3 euflexxa inj Not Available Not Available Not Available melatonin active Not Available Not Marlene ilable Not Available Synthroid active Not Available Not Marlene ilable Not Available Ventolin HFA 10/20 completed Not Available Not Available Not Available Crestor active Not Available Not Avail able Not Available lidocaine (PF) 10 mg/mL (1 %) injection solution Take 2 mL by injectio n route. 10/20 completed Not Available Not Available Not Available budesonid e-formote rol HFA 160 mcg-4.5 mcg/actua tion aerosol inhaler INHALE 2 PUFFS TWICE A DAY active Not Available Not Available No t Available Symbicort active Not Available Not Marlene ilable Not Available Raysa Allergy active Not Available Not Available Not Available lidocaine (PF) 100 mg/5 mL (2 %) injection syringe Take 2 mL by injectio n route. 05/05 completed Not Available Not Available Not Available potassium chloride ER 20 mEq tablet,ex tended release TAKE 2 TABLETS BY MOUTH 2 TIMES DAILY. FOR THREE DOSES ONLY active Not Available Not Available No t Available Flonase Allergy Relief active Not Available Not Available Not Available Breztri Aerospher e 160 mcg-9mcg- 4.8mcg/ac tuation HFA aerosol inhaler INHALE 2 PUFFS BY MOUTH TWICE DAILY 01/20 completed Not Available Not Available Not Available melatonin 1 mg chewable tablet Take by oral route. active Not Available Not Available No t Available Ozempic 0.25 mg or 0.5 mg (2 mg/3 mL) subcutane ous pen injector INJECT 0.25 MG BY SUBCUTAN EOUS ROUTE ONCE WEEKLY ON THE SAME DAY OF EACH WEEK FOR 30 DAYS active Not Available Not Available No t Available Vitals Date Recorded Body height Body mass index (BMI) Body weight Provider Name and Address Organization Details Last Updated DateTime 08/16/2024 162.56 cm 41 kg/m2 977120.[address] [place] [facility] 08/16/2024 15:55:43 Date Recorded Body height Body mass index (BMI) Body weight Provider Name and Address Organization Details Last Updated DateTime 08/23/2024 162.56 cm 41 kg/m2 676071.58 g Humaira Romero [facility] 08/23/2024 15:47:10 Social History None recorded. Functional Status Question Answer Note LastModified by Organizat ion Details LastModified Time How many times per week do you consume alcohol? 5-7 times per week Information not available 06/02/2023 Do you use any illicit or recreational drugs? No Information not available 06/02/2023 Do you or have you ever used any other forms of tobacco or nicotine? No Information not available 06/02/2023 What is your level of alcohol consumption? Moderate Information not available 06/02/2023 Mental Status None recorded. Family History Relationship Description Onset Age of this Age Resolved Age Notes LastModified by Organization Details LastModified Time Mother Heart disease Not available 2022 10:56:16 Mother Hypertensive disorder Not available 2022 10:56:27 Father Heart disease Not available 2022 10:56:16 Brother Hypertensive disorder Not available 2022 10:56:27 Medical History No medical history recorded. Gynecological HistoryNo gynecological history recorded. Obstetrics History GPAL:G 0 P 0 0 0 0 Past Encounters Encounter ID Performer Location Encounter Start Date Encounter Closed Date Diagnosis/Indication Diagnosis SNOMED-CT Code Diagnosis ICD10 Code Diagnosis Note [id number] [facility] [address] [facility] [address] [facility] [place] [address] 06/02/2023 10:37:04 06/02/2023 11:09:33 Osteoarthritis of right knee joint 8568857888 87148 M17.11 Osteoarthr itis of left knee joint 4944946214 28807 M17.12 Pain of bi lateral knee joints 9553489782 31373 M25.561 M25.[id number] [facility] [address] [facility] [address] [facility] [place] [address] 10/20/2023 15:48:11 10/20/2023 16:29:53 Osteoarthritis of left knee joint 3188297408 08006 M17.12 Osteoarthr itis of right knee joint 3264557563 M17.[id number] [facility] [address] [place] [address] 01/21/2024 15:40:12 01/21/2024 16:02:43 Osteoarthritis of left knee joint 2721037891 98252 M17.12 Osteoarthr itis of right knee joint 8930256500 M17.11 [id number] [address] [facility] [address] [facility] [place] [address] 05/05/2024 11:18:05 05/05/2024 11:49:31 Osteoarthritis of left knee joint 6413918376 74560 M17.12 Osteoarthr itis of right knee joint 9080961796 39904 M17.11 Additional diagnosis detail: Osteoarthr itis of right knee, unspecifie d osteoarthr itis type [id number] JOSI PEREZ [address] [place] [address] 08/16/2024 15:41:51 08/16/2024 16:17:46 Osteoarthritis of right knee joint 7980159897 64403 M17.11 Osteoarthr itis of left knee joint 9884858784 34231 M17.12 [id number] [facility] [address] [facility] [address] [place] [address] 08/23/2024 15:35:25 08/23/2024 15:59:23 Osteoarthritis of right knee joint 7533763984 30704 M17.11 Osteoarthr itis of left knee joint 1621927892 33208 M17.12 [id number] [facility] [address] [facility] [address] [place] [address] 08/30/2024 15:43:21 08/30/2024 16:30:02 Primary gonarthrosis, bilateral 257016425 M17.0 Osteoarthr itis of knee 828312464 M17.9 Health Concerns Section Related Observation LastModified by Organization Detai ls LastModified Time None Recorded Concern Status LastModified by Organization Details LastModified Time None Recorded Advance Directives Directive None Recorded Payers Insurance Date Sequence Insurance Name Policy Number Policy Fowler Covered Member ID Fowler Member ID Guarantor Name 10/20/2023 1 [employer] [id number] 1 Gunnar Carpio [id number] Martha Carpio 05/11/2024 1 [place] [id number] 1 Gunnar Carpio [id number] Mary Shirin Notes Date Note Type Note Provider Name and Address Organization Details Recorded Time 4 text/html Pleasant 63-year-old female degenerative arthritis of both knees with arthralgia last seen on 10/20/2023 for which she had cortisone injections at that time which recently wore off. Her pain is returned medially in both knees with weightbearing and bending movements. She denies a falls denies any interval change in history here for evaluation possible cortisone injection both knees. ASHOK BOTELLO PA-C [address] [place] [address],[facility] [address], [place], [address], [place] [facility] 01/22/2024 08:09:55 4 text/html 63-year-old female presents with complaint of bilateral knee pain. She reports that her cortisone injections on 01/21/2024 gave her approximately 50% resolution of her pain lasting for approximately 2 months. After that she has had a recurrence of her pain that is localized in the medial compartments of the joints. She reports no other change in character quality or location of her symptoms. There has been no new injury accidents or trauma. She denies a history of surgery or viscosupplementation to either knee. ASHOK SIMENTAL PA-C [address] [place] [address], [address], [place] [facility] 05/05/2024 11:52:11 OBGyn Episode No OBEpisode recorded.
--- OUTSIDE RECORDS SUMMARY | 2025-05-10 10:49 | XMS_ITS | Clinical Summary ---
Author Organization [facility] Address [address] [place], [place] [id number] Care Team Providers Care Dispensary Clerk Name Role Phone Vaughn Barajas MD Primary Care Provider [phone] Allergies Active Allergy Reactions Criticality Noted Date Comments Lisinopril Anaphylaxis High 11/23/2019 Medications Medication Sig Dispensed Refills Start Date End Date Status Albuterol Sulfate 108 (90 Base) MCG/ACT AEPB Inhale 2 Inhalers into the lungs. 0 Active amLODIPine (NORVASC) tablet 10 mg 0 10/04/2019 Active carvedilol (COREG) 12.5 MG tablet 0 12/24/2019 Active Cetirizine HCl (ZyrTEC ALLERGY) 10 MG CAPS Take 1 capsule by mouth. 0 Active chlorthalidone (HYGROTON) 25 MG tablet 0 01/07/2020 Active levothyroxine (SYNTHROID, LEVOXYL) tablet 100 mcg 0 09/29/2019 Active Multiple Vitamin (MULTI VITAMIN) TABS Take by mouth. 0 Active omeprazole (PriLOSEC) 40 MG capsule Take 40 mg by mouth. 0 Active sertraline (ZOLOFT) 100 MG tablet Take 100 mg by mouth. 0 Active simvastatin (ZOCOR) tablet 20 mg TAKE 1 TAB BY MOUTH DAILY AT BEDTIME 0 2018 Active Turmeric 500 MG CAPS Take by mouth. 0 Active potassium chloride ER (K-DUR,KLOR-CON) tablet 20 mEq Take 1 tablet by mouth daily. 0 02/13/2021 Active nitroglycerin (NITROSTAT) 0.[address] 0.4 mg under the tongue. 0 07/29/2016 Active amitriptyline (ELAVIL) tablet 50 mg Take 50 mg by mouth. 0 Active aspirin 81 MG chewable tablet Chew 81 mg by mouth. 0 07/25/2016 Active Biotin 5 MG TBDP Take 5,000 mcg by mouth. 0 09/05/2019 Active fexofenadine (YONATAN) 180 MG tablet 0 07/01/2018 Active gabapentin (NEURONTIN) 100 MG capsule Take 100 mg by mouth. 0 09/05/2019 Active carvedilol (COREG) 6.25 MG tablet Take 1 tablet by mouth 2 (two) times a day with meals. 0 09/10/2021 Active Trelegy Ellipta 200-62.5-25 MCG/INH AEPB INHALE 1 PUFF INTO LUNGS DAILY 0 05/14/2022 Active furosemide (LASIX) 20 MG tablet 0 06/16/2022 Active pravastatin (PRAVACHOL) tablet 80 mg Take 80 mg by mouth every night at bedtime. 0 05/15/2022 Active Active Problems Problem Noted Date Diagnosed Date Effusion of right knee joint 01/30/2022 Primary osteoarthritis of both knees 01/30/2022 Family History Medical History Relation Name Comments Hypertension Brother Hypertension Father Hypertension Mother Relation Name Status Comments Brother Father Mother Social History Tobacco Use Types Packs/Day Years Used Date Smoking Tobacco: Never Assessed Sex and Gender Information Value Date Recorded Sex Assigned at Not on file Gender Identity Not on file Sexual Orientation Not on file Job Start Date Occupation Industry Not on file Not on file Not on file Last Filed Vital Signs Vital Sign Reading Time Taken Comments Blood Pressure - - Pulse - - Temperature - - Respiratory Rate - - Oxygen Saturation - - Inhaled Oxygen Concentration - - Weight 107.5 kg (237 lb) 01/29/2022 3:35 PM EDT Height 170.2 cm (5' 7 ) 01/29/2022 3:35 PM EDT Body Mass Index 37.12 01/29/2022 3:35 PM EDT Plan of Treatment Health Maintenance Due Date Last Done Comments Hepatitis C Screening 1960 COVID-19 Vaccine (#1) 05/05/1959 Pneumococcal Vaccine (1 of 2 - PCV) 1964 Depression Screening 1970 BMI Counseling 1976 Preventative Health Evaluation 1976 DTap / Tdap / Td (1 - Tdap) 1977 Colon Cancer Screening (Colonoscopy) 2003 Breast Cancer Screening (Mammogram) 2008 Shingrix-Zoster Vaccine (1 of 2) 2008 Fall Risk Assessment 2023 Osteoporosis Screening (DEXA Scan) 2023 Influenza Vaccine (Season Ended) 2025 RSV Adult > 60+ Yrs or Pregn ant (1 - 1-dose 75+ series) 2033 Hepatitis B Vaccines Aged Out No long er eligible based on patient's age to complete this topic RSV Ped < 20 months Aged Out No longe r eligible based on patient's age to complete this topic Care Teams Dispensary Clerk Relationship Specialty Start Date End Date Vaughn Barajas MD [address] [place], [place] [id number] PCP - General Patient Insurance Clerk 02/29/20
== END 2025-05-10 10:46 | disposition home or self-care (01) ==
LOC: HO.HPS 10:16
PROVIDERS: PCP Internal Medicine; Visit Provider Hospitalist
DX: J44.9 Chronic obstructive pulmonary disease, unspecified (principal); R59.1 Generalized enlarged lymph nodes; R91.8 Other nonspecific abnormal finding of lung field; G47.33 Obstructive sleep apnea (adult) (pediatric); Z99.89 Dependence on other enabling machines and devices; J84.9 Interstitial pulmonary disease, unspecified; R06.09 Other forms of dyspnea; R78.89 Finding of other specified substances, not normally found in blood; R09.02 Hypoxemia
CPT/HCPCS: 99215

== ENCOUNTER 2025-05-10 10:15 | Outpatient (REF) | payer BC, SELFPAY ==
[2025-05-10 11:08] LABS: MANUAL DIFF FLAG NO
--- OUTSIDE RECORDS SUMMARY | 2025-05-10 11:33 | XMS_ITS ---
Author Name [facility] Organization Unknown History of Medication Use Medication Directions Dispensed Refills Start Date End Date Stat us Euflexxa 10 mg/mL (mw 2.4-3.6 million) intra-articular syringe Inject 10 mg by intra-articular route for 21 days. 08/30/2024 active lidocaine (PF) 100 mg/5 mL (2 %) injection syringe Take 2 mL by injection route. 01/22/2024 05/05/2024 completed Kenalog 40 mg/mL suspension for injection Take 1 mL by injection route. 01/21/2024 05/05/2024 completed lidocaine (PF) 10 mg/mL (1 %) injection solution Take 2 mL by injection route. 06/12/2023 10/20/2023 completed carvedilol 6.25 mg tablet TAKE 1 TABLET BY MOUTH TWICE A DAY WITH MEALS 08/16/2024 completed chlorthalidone 25 mg tablet TAKE 1 TABLET BY MOUTH EVERY DAY 08/16/2024 completed meloxicam 15 mg tablet TAKE 1 TABLET BY MOUTH EVERY DAY NEEDED FOR PAIN WITH FOOD 08/16/2024 completed rosuvastatin 20 mg tablet TAKE 1 TABLET BY MOUTH EVERY DAY 08/16/2024 completed Breedwardtri Aerosphere 160 mcg-9mcg-4.8mcg/actu ation HFA aerosol inhaler INHALE 2 PUFFS BY MOUTH TWICE DAILY 01/21/2024 completed prednisone 20 mg tablet TAKE 1 TABLET BY MOUTH TWICE A DAY FOR 5 DAYS THEN TAKE 1 TABLET EVERY DAY FOR 5 DAYS 01/21/2024 completed amoxicillin-potassiu m clavulanate 1,000 mg-62.5 mg tablet,ext.rel 12hr TAKE 1 TABLET BY MOUTH EVERY 12 HOURS WITH A MEAL FOR 7 DAYS 10/20/2023 completed ibuprofen 800 mg tablet TAKE 1 TABLET BY MOUTH THREE TIMES A DAY NEEDED 10/20/2023 completed ibuprofen 800 mg tablet TAKE 1 TABLET BY MOUTH THREE TIMES A DAY NEEDED 10/20/2023 completed simvastatin 20 mg tablet TAKE 1 TABLET BY MOUTH EVERYDAY AT BEDTIME 10/20/2023 completed amitriptyline 10 mg tablet TAKE 1 & 1/2 TABLETS BY MOUTH AT BEDTIME 06/02/2023 completed amlodipine 5 mg tablet TAKE 1 TABLET BY MOUTH EVERY DAY 06/02/2023 active amoxicillin 875 mg-potassium clavulanate 125 mg tablet 06/02/2023 completed cefdinir 300 mg capsule TAKE 1 CAPSULE BY MOUTH EVERY 12 HOURS FOR 10 DAYS 06/02/2023 completed cefdinir 300 mg capsule TAKE 1 CAPSULE BY MOUTH EVERY 12 HOURS FOR 10 DAYS 06/02/2023 active ofloxacin 0.3 % ear drops 06/02/2023 completed prednisone 10 mg tablet TAKE 3 TABS [id number],2TAB S [id number] THEN 1 TAB [id number] 06/02/2023 completed lidocaine (PF) 100 mg/5 mL (2 %) injection syringe active carvedilol 12.5 mg tablet TAKE 1 TABLET BY MOUTH TWICE A DAY WITH MEALS active carvedilol 6.25 mg tablet TAKE 1 TABLET BY MOUTH TWICE A DAY WITH MEALS active chlorthalidone 25 mg tablet TAKE 1 TABLET BY MOUTH EVERY DAY active doxycycline hyclate 100 mg tablet TAKE 1 TABLET BY MOUTH EVERY 12 HOURS FOR 10 DAYS active fluticasone propionate 50 mcg/actuation nasal spray,suspension USE 1 TO 2 SPRAYS IN EACH NOSTRIL ONCE DAILY active levothyroxine 100 mcg tablet TAKE 1 TABLET BY MOUTH EVERY DAY active melatonin 1 mg chewable tablet Take by oral route. active sertraline 100 mg tablet TAKE 1 TABLET BY MOUTH EVERYDAY AT BEDTIME active sertraline 100 mg tablet TAKE 1 TABLET BY MOUTH EVERYDAY AT BEDTIME active spironolactone 25 mg tablet TAKE 1 TABLET BY MOUTH EVERY DAY active spironolactone 25 mg tablet TAKE 1 TABLET BY MOUTH EVERY DAY active Allergies Allergen Reaction Severity Comment Documented Date Source Statu s LISINOPRIL [facility] Problems Problem Status Onset Date Problem Type Date of Resoluti on Source Osteoarthritis of right knee joint active 2023-06-02 ProblemAct [facility] Osteoarthritis of left knee joint active 2023-06-02 ProblemAct [facility] Encounters Encounter Type Encounter Reason Primary Diagnosis Location Date Ambulatory [facility] [place] 12/01/2024 Ambulatory [facility] [place] 09/25/2024 Ambulatory [facility] [place] 09/15/2024 Ambulatory [facility] [place] 08/30/2024 Ambulatory [facility] [place] 08/22/2024 Ambulatory [facility] [place] 08/22/2024 Ambulatory [facility] [place] 08/17/2024 Ambulatory [facility] [place] 08/17/2024 Ambulatory [facility] [place] 08/16/2024 Ambulatory [facility] [place] 08/15/2024 Ambulatory [facility] [place] 06/13/2024 Ambulatory [facility] [place] 06/10/2024 Ambulatory [facility] [place] 06/01/2024 Ambulatory [facility] [place] 05/10/2024 Ambulatory [facility] [place] 05[facility]06/2024 Ambulatory [facility] [place] 05/04/2024 Ambulatory [facility] [place] 05/04/2024 Ambulatory [facility] [place] 04/03/2024 Ambulatory [facility] [place] 02/28/2024 Ambulatory [facility] [place] 01/21/2024 Ambulatory [facility] [place] 01/17/2024 Ambulatory [facility] [place] 12/27/2023 Ambulatory [facility] [place] 11/21/2023 Ambulatory [facility] [place] 10/20/2023 Ambulatory [facility] [place] 10/05/2023 Ambulatory [facility] [place] 09/11/2023 Ambulatory [facility] [place] 08/07/2023 Ambulatory [facility] [place] 07/03/2023 Ambulatory [facility] [place] 06/12/2023 Ambulatory [facility] [place] 06/02/2023 Ambulatory [facility] [place] 06/02/2023 Ambulatory [facility] [place] 05/29/2023 Ambulatory [facility] [place] 05/29/2023 Ambulatory [facility] [place] 05/29/2023 Care Team Organization Name Specialty Phone Email Start Date End Da te [facility] [place] MARGY [facility] Primary [facility] 10/09/2022 024
[2025-05-10 12:14] LABS: Hematocrit 37.6 % (37.0-47.0); Hemoglobin 12.4 g/dl (12.0-16.0); Imm Gran Abs Auto 0.04 X10*3/uL (0.00-0.03); Imm Gran Pct Auto 0.4 % (0.0-0.4); Lymphocytes Absolute Auto 1.5 X10*3/uL (1.2-4.9); Mean Corpuscular HGB Conc 33.0 g/dl (31.0-35.0); Mean Corpuscular Hemoglobin 28.1 pg (27.0-33.0); Mean Corpuscular Volume 85.3 fL (80.0-98.0); NRBC Abs Auto 0.000 X10*3/uL (0.0-0.012); NRBC Pct Auto 0.0 /100WBC (0.0-0.2); Platelet Count 246 X10*3/uL (160-400); Red Blood Count 4.41 X10*6/uL (4.20-5.50); White Blood Count 9.3 X10*3/uL (4.8-10.8)
[2025-05-10 12:47] LABS: Anion Gap 14 (12-20); Blood Urea Nitrogen 30 mg/dL (9-16); Calcium 10.3 mg/dL (8.4-10.2); Carbon Dioxide 36 mmol/L (22-29); Chloride 92 mmol/L (96-108); Estimated Glomerular Filt Rate 34; Potassium 3.0 mmol/L (3.3-5.1); Sodium 139 mmol/L (135-145)
[2025-05-10 12:51] LABS: Troponin-I High Sensitivity 14.3 ng/L (<3.5-17.0)
[2025-05-10 13:35] LABS: D Dimer High Sensitivity 355 NG/ML
== END 2025-05-10 10:16 | disposition home or self-care (01) ==
LOC: HO.LAB 10:15
PROVIDERS: PCP Internal Medicine; Visit Provider Hospitalist
DX: R06.00 Dyspnea, unspecified (principal)
CPT/HCPCS: 36415; 80048; 84484; 85025; 85379; 85652

== ENCOUNTER 2025-05-10 15:30 | Inpatient (IN) | payer BC, MEDICARE, SELFPAY ==
--- NOTE | ~2025-05-10 | XR_ITS ---
EXAMINATION: XR CHEST CLINICAL INFORMATION: pain COMPARISON: None available. TECHNIQUE: 2 views of the chest were obtained. FINDINGS: No significant abnormality is noted involving the heart, lungs, mediastinum, bony thorax or soft tissues. XR/XR chest 2V IMPRESSION: Unremarkable examination. Electronically signed by: Alberto Avilez MD 05/10/2025 04:24 PM EDT
--- NOTE | ~2025-05-10 | NM_ITS ---
CLINICAL HISTORY: Ddimer, hypoxia NM Lung Perfusion Comparison: None provided Findings: 2.7 mCi technetium 99m MAA used. No perfusion defects. IMPRESSION: No perfusion defects. This document has been electronically signed by: Sudeep Gallegos MD on 05/10/2025 22:01:59
[2025-05-10 15:51] VITALS: BP 136/74; PULSE 64; RESP 18; TEMP 36.8; O2SAT 93; BMI 38.4
--- NOTE | 2025-05-10 15:52 | ED.GENADULT ---
HPI - General Adult General Chief complaint: Recheck/Abnormal Lab/Rx Stated complaint: abn labs doc told pt to come to er Time Seen by Provider: 05/10/25 16:35 Source: patient Mode of arrival: ambulatory Limitations: no limitations History of Present Illness HPI narrative: THIS IS A 64 YEARS OLD PRESENTED TO EMERGENCY DEPARTMENT SENT BY THE PRIMARY CARE PHYSICIAN BECAUSE LOW POTASSIUM ELEVATED BUN AND CREATININE POSITIVE D-DIMER P. PATIENT IS COMPLAINING OF GENERALIZED WEAKNESS MALAISE SHE HAS A HISTORY OF COPD NO HISTORY OF CORONARY ARTERY DISEASE DENIES ANY CHEST PAIN AT THIS TIME SHE DOES FEEL NAUSEA Onset (ago): day(s) (2) Radiation: non-radiation Severity: moderate Pain Consistency: constant Relieving factors: none Exacerbating factors: none Associated symptoms: denies other symptoms Related Data Home Medications ?Medication ?Instructions ?Recorded ?Confirmed amitriptyline 10 mg tablet 10 mg PO BEDTIME 01/09/21 05/10/25 chlorthalidone 25 mg tablet 25 mg PO DAILY 12/11/22 05/10/25 fexofenadine 60 mg tablet (Raysa 60 mg PO DAILY PRN Allergy Symptoms 12/11/22 05/10/25 Allergy) fluticasone propionate 50 1 spray intranasal DAILY 12/11/22 05/10/25 mcg/actuation nasal spray,suspension levothyroxine 100 mcg tablet 100 mcg PO DAILY 12/11/22 05/10/25 multivitamin 1 tab PO DAILY 12/11/22 05/10/25 omeprazole 40 mg capsule,delayed 40 mg PO DAILY 12/11/22 05/10/25 release sertraline 100 mg tablet 100 mg PO BEDTIME 12/11/22 05/10/25 rosuvastatin 20 mg tablet (Crestor) 20 mg PO DAILY 03/12/23 05/10/25 ibuprofen 800 mg tablet 800 mg PO TID 06/15/24 05/10/25 semaglutide 0.25 mg or 0.5 mg (2 0.5 mg subcut MO 06/15/24 05/10/25 mg/3 mL) subcutaneous pen injector (Ozempic) amlodipine 5 mg tablet 5 mg PO DAILY 05/10/25 05/10/25 carvedilol 12.5 mg tablet 6.25 mg PO BEDTIME 05/10/25 05/10/25 carvedilol 12.5 mg tablet 12.5 mg PO DAILY 05/10/25 05/10/25 empagliflozin 10 mg tablet 10 mg PO DAILY 05/10/25 05/10/25 (Jardiance) furosemide 20 mg tablet 10 mg PO DAILY 05/10/25 05/10/25 Previous Rx's ?Medication ?Instructions ?Recorded albuterol sulfate 90 mcg/actuation 2 inh inhalation Q6H PRN shortness 12/20/24 aerosol inhaler of breath or wheezing 30 days #18 grams budesonide-formoterol HFA 160 2 puff inhalation BID #30.6 ea 04/19/25 mcg-4.5 mcg/actuation aerosol inhaler Allergies Allergy/AdvReac Type Severity Reaction Status Date / Time lisinopril Allergy Severe Anaphylaxis Verified 05/10/25 15:52 Review of Systems Constitutional: Constitutional: Reports no additional constitutional complaints Cardiovascular: Cardiovascular: Reports no additional cardiovascular complaints Musculoskeletal: Musculoskeletal: Reports no additional musculoskeletal complaints [facility] Past Medical History Attestation statement: The following information was validated with the patient. [facility] Narrative: HISTORY OF INTERSTITIAL LUNG DISEASE/ COPD/ OBSTRUCTIVE SLEEP APNEA Medical History (Updated 05/10/25 @ 18:09 by Bharat Knight MD) Hypoxia VIVIENNE on CPAP Pulmonary nodules Lymphadenopathy Asthma-COPD overlap syndrome Social History Social History Patient Tobacco Use Status: Never used Tobacco Physical Exam ED Vital Signs: Vital Signs - 24 hr 05/10/25 15:51 05/10/25 16:34 Temperature 98.3 F 98.3 F Pulse Rate 64 65 Respiratory Rate 18 12 Blood Pressure 136/74 140/53 H Pulse Oximetry 93 97 Oxygen Delivery Method Room Air Room Air BMI result Body Mass Index 38.4 NO ACUTE DISTRESS Const General: cooperative Nutritional Appearance: average body habitus Orientation/consciousness: patient oriented x3 Limitations: no limitations HENMT Head: Yes normal to inspection General nose exam: Normal external nose present Face and sinus: Yes normal facial exam Mouth: Normal oral and palatal mucosa present Throat: Yes posterior oropharynx normal Neck Neck: Yes normal visual inspection Chest Chest palpation & inspection: normal inspection of the chest Resp Effort & Inspection: normal respiratory effort Auscultation: clear to auscultation bilaterally Cardio Jugular venous distension: no JVD Rate: regular rate Rhythm: regular rhythm GI Inspection: Yes normal to inspection Palpation (GI): Soft to palpation, not firm and nontender Skin General skin exam: no rashes or lesions noted and elasticity normal Neuro General: patient oriented x3 Course Course Course Narrative: RME, this is a rapid medical exam performed by Angus Haddad please refer to primary provider for complete H&P- 64 year old female presents for evaluation of nausea. She had routine labs with her doctor and was found to have abnormal potassium at 3.0, CO2 elevated to 36, BUN of 30 and creatinine of 1.51. Plan for repeat labs and a UA Reevaluation(s) Reevaluation #1: Patient remain stable K noted the patient will be admitted for IV potassium replacement and IV fluids. The pulmonology order an outpatient D-dimer which is mildly elevated we will give him a dose of Lovenox tonight and tomorrow when the kidney function tests is improved we will do a CTA of the chest Time: 17:30 Medications Administered Discontinued Medications Generic Name Dose Route Start Last Admin Trade Name Freq PRN Reason Stop Dose Admin Enoxaparin Sodium 100 mg 05/10/25 17:28 05/10/25 17:44 Enoxaparin Sodium 100 Mg/Ml Syringe 1 mg/kg (100 mg) 05/10/25 17:29 100 mg SUBCUT Administration ONCE ONE Potassium Chloride 10 meq in 100 mls @ 100 mls/hr 05/10/25 16:45 05/10/25 19:38 Potassium Chloride/H20 IV 05/10/25 18:44 100 mls/hr Q1H ASHLEE Administration Sodium Chloride 1,000 mls @ 999 mls/hr 05/10/25 17:30 05/10/25 17:45 Ns IVCONT 05/10/25 18:30 999 mls/hr .Q1H1M ASHLEE Administration Potassium Chloride 40 meq 05/10/25 16:38 05/10/25 17:44 Potassium Chloride Packet 20 Meq Packet PO 05/10/25 16:39 40 meq ONCE ONE Administration Medical Decision Making Medical Decision Making [facility] Narrative: PATIENT IS HERE WITH A CHIEF COMPLAINT OF GENERALIZED WEAKNESS ALSO HYPOKALEMIA BONILLA ANTICIPATE ADMISSION Differential Diagnosis Differential Diagnoses: The differential diagnosis associated with the presentation includes RENAL FAILURE/VIRAL SYNDROME Admission/Observation Consideration of admission/observation: Escalation of care including admission/observation considered Lab Data 05/10/25 16:10 05/10/25 16:10 Labs: Lab Results 05/10/25 05/10/25 Range/Units 16:10 16:47 WBC 10.4 (4.8-10.8) X10*3/uL RBC 4.20 (4.20-5.50) X10*6/uL Hgb 12.1 (12.0-16.0) g/dl Hct 35.4 L (37.0-47.0) % MCV 84.3 (80.0-98.0) fL MCH 28.8 (27.0-33.0) pg MCHC 34.2 (31.0-35.0) g/dl RDW 13.6 (11.0-16.0) % Plt Count 231 (160-400) X10*3/uL MPV 10.3 (9.4-12.3) fL Immature Gran % (Auto) 0.3 (0.0-0.4) % Neut % (Auto) 72.4 (45-73) % Lymph % (Auto) 16.9 L (20-40) % Curry % (Auto) 8.5 (2-11) % Eos % (Auto) 1.6 (0-4) % Baso % (Auto) 0.3 (0-2) % Lymph # (Auto) 1.8 (1.2-4.9) X10*3/uL Curry # (Auto) 0.9 (0.1-1.2) X10*3/uL Eos # (Auto) 0.2 (0.0-0.4) X10*3/uL Baso # (Auto) 0.0 (0.0-0.2) X10*3/uL Abs Immat Gran (auto) 0.03 (0.00-0.03) X10*3/uL Absolute Neuts (auto) 7.5 (2.0-8.3) x10*3/uL Absolute Nucleated RBC 0.000 (0.0-0.012) X10*3/uL Nucleated RBC % (auto) 0.0 (0.0-0.2) /100WBC Sodium 138 (135-145) mmol/L Potassium 2.4 L* (3.3-5.1) mmol/L Chloride 91 L (96-108) mmol/L Carbon Dioxide 37 H (22-29) mmol/L Anion Gap 12 (12-20) BUN 30 H (9-16) mg/dL Creatinine 1.56 H (0.5-1.4) mg/dL Estim Creat Clear Calc 41.1 Estimated GFR 33 Random Glucose 135 H (60-115) mg/dL Calcium 9.4 D (8.4-10.2) mg/dL Magnesium 2.3 (1.6-2.6) mg/dL Total Bilirubin 0.6 (0.0-1.0) mg/dL AST 34 H (5-31) U/L ALT 12 (0-31) U/L Alkaline Phosphatase 120 H (39-117) U/L Troponin I High Sens 13.4 (<3.5-17.0) ng/L Total Protein 7.4 (6.5-8.0) g/dL Albumin 4.3 (3.5-5.0) g/dL Lipase 26 (8-78) U/L Urine Color Yellow Urine Appearance Clear Urine pH 5.5 (5.0-9.0) Ur Specific Lena 1.020 (1.005-1.025) Urine Protein 100 (2+) H (Neg-Trace) mg/dL Urine Glucose (UA) >=1000 H (Negative) mg/dL Urine Ketones Negative (Negative) mg/dL Urine Blood Small (1+) H (Negative) Urine Nitrite Negative (Negative) Ur Leukocyte Esterase Negative (Negative) Urine RBC 0-2 (0-2) /HPF Urine WBC 0-5 (0-5) /HPF Ur Squamous Epith Cells 0-2 (0-2) /HPF Urine Bacteria None Seen (None Seen) Hyaline Casts 3-5 (0-2) /LPF Influenza Type A (PCR) NEGATIVE (Negative) Influenza Type B (PCR) NEGATIVE (Negative) RSV RNA Qual (PCR) NEGATIVE (Negative) SARS-CoV-2 RNA (RT-PCR) NEGATIVE (Negative) Critical Care Time Critical Care Time Critical Care Time: Yes Total Critical Care Time: 60 Attestation: IV REPLACEMENT OF POTASSIUM SEVERE HYPOKALEMIA Discharge Plan Discharge Clinical Impression: Acute hypokalemia, BONILLA (acute kidney injury) Patient Disposition: Admitted As Inpatient Interventions: Admission Worksheet (ED) Last Done: 05/10/25 19:16 Discharge Date/Time: 05/10/25 19:53
--- NOTE | 2025-05-10 15:54 | ECG_ITS ---
Test Reason : DYSPNEA ON EXCERTION Blood Pressure : */* mmHG Vent. Rate : 65 BPM Atrial Rate : 65 BPM P-R Int : 162 ms QRS Dur : 156 ms QT Int : 472 ms P-R-T Axes : 29 75 16 degrees QTcB Int : 490 ms Normal sinus rhythm Right bundle branch block Abnormal ECG No previous ECGs available Referred By: Ryan Haddad Electronically Signed By: TRANG LAND MD
[2025-05-10 16:15] LABS: MANUAL DIFF FLAG NO
[2025-05-10 16:17] LABS: Hematocrit 35.4 % (37.0-47.0); Hemoglobin 12.1 g/dl (12.0-16.0); Imm Gran Abs Auto 0.03 X10*3/uL (0.00-0.03); Imm Gran Pct Auto 0.3 % (0.0-0.4); Lymphocytes Absolute Auto 1.8 X10*3/uL (1.2-4.9); Mean Corpuscular HGB Conc 34.2 g/dl (31.0-35.0); Mean Corpuscular Hemoglobin 28.8 pg (27.0-33.0); Mean Corpuscular Volume 84.3 fL (80.0-98.0); NRBC Abs Auto 0.000 X10*3/uL (0.0-0.012); NRBC Pct Auto 0.0 /100WBC (0.0-0.2); Platelet Count 231 X10*3/uL (160-400); Red Blood Count 4.20 X10*6/uL (4.20-5.50); White Blood Count 10.4 X10*3/uL (4.8-10.8)
[2025-05-10 16:34] VITALS: BP 140/53; PULSE 65; RESP 12; TEMP 36.8; O2SAT 97
--- NOTE | 2025-05-10 16:36 | MHC.EDTECH ---
chest pain before they came here 07/19. Patient complain about left Hip pain 06/18
[2025-05-10 16:37] LABS: Alanine Aminotransferase 12 U/L (0-31); Albumin Level 4.3 g/dL (3.5-5.0); Alkaline Phosphatase 120 U/L (39-117); Anion Gap 12 (12-20); Aspartate Amino Transferase 34 U/L (5-31); Blood Urea Nitrogen 30 mg/dL (9-16); Calcium 9.4 mg/dL (8.4-10.2); Carbon Dioxide 37 mmol/L (22-29); Chloride 91 mmol/L (96-108); Creatinine Clr Calc Pharmacy 41.1; Estimated Glomerular Filt Rate 33; Lipase 26 U/L (8-78); Magnesium 2.3 mg/dL (1.6-2.6); Potassium 2.4 mmol/L (3.3-5.1); Sodium 138 mmol/L (135-145); Total Protein 7.4 g/dL (6.5-8.0)
[2025-05-10 16:38] LABS: Troponin-I High Sensitivity 13.4 ng/L (<3.5-17.0)
[2025-05-10 17:03] LABS: Resp Syncy Virus RNA Qual PCR NEGATIVE (Negative); SARS COV2 PCR INHOUSE NEGATIVE (Negative)
[2025-05-10 17:19] LABS: Appearance Urine Clear; Glucose Urine UA >=1000 mg/dL (Negative); PH 5.5 (5.0-9.0); Specific Gravity - Urine 1.020 (1.005-1.025); UMIC TRIGGER UACC YES
[2025-05-10] MEDS: Potassium Chloride Packet 20 MEQ PACKET 40 MEQ PO (17:44)
[2025-05-10] MEDS: Potassium Chloride/H20 10 MEQ/100 ML PIGGYBACK 100 MEQ IV ×2 (17:45→19:38)
--- NOTE | 2025-05-10 17:46 | PM.IMHP ---
History of Present Illness Date of Service: 05/10/25 Chief Complaint: bonilla, [place], sob 64F PMH VIVIENNE on cpap, copd, htn, hld, obesity, DM, hypothyroid presented with sob, hypokalemia, BONILLA. Patient was on a recent cruise was feeling nauseous, poor p.o. intake, denies vomiting, minimal diarrhea, reports sob, worse on exertion, fatigue. Went to [facility]. Knight, labs were done which revealed hypokalemia, D-dimer of 350, creatinine of 1.5. sent to ED. Review of Systems Review of Systems: Yes all other systems are reviewed and are negative [facility] Medical History VIVIENNE on CPAP Pulmonary nodules Lymphadenopathy Asthma-COPD overlap syndrome Social History Patient Tobacco Use Status: Never used Tobacco Advance Directives: No Advance Directives Information Provided: No Do you have a plan to hurt others: No Plan Meds Allergies Allergy/AdvReac Type Severity Reaction Status Date / Time lisinopril Allergy Severe Anaphylaxis Verified 05/10/25 15:52 Active Medications: Current Medications Dextrose (Dextrose 50 % 25 Gm/50 Ml Syringe) 25 gm IVPUSH Q15M PRN; Protocol PRN Reason: per Hypoglycemia Standing Ord. Glucose (Glucose Gel 15 Gm Gel..Gram.) 15 gm PO Q15M PRN; Protocol PRN Reason: per Hypoglycemia Standing Ord. Potassium Chloride (Potassium Chloride/H20) 10 meq in 100 mls @ 100 mls/hr IV Q1H ASHLEE Stop: 05/10/25 18:44 Last Admin: 05/10/25 17:45 Dose: 100 mls/hr Sodium Chloride (Ns) 1,000 mls @ 999 mls/hr IVCONT .Q1H1M ASHLEE Stop: 05/10/25 18:30 Last Admin: 05/10/25 17:45 Dose: 999 mls/hr Insulin Human Lispro (Insulin Lispro 100 Unit/Ml 3 Ml Vial) 0 unit SUBCUT QIDACHS ASHLEE; Protocol Home Medications ?Medication ?Instructions ?Recorded ?Confirmed ?Last Taken ?Type amitriptyline 10 mg tablet 10 mg PO BEDTIME 01/09/21 01/09/21 Unknown History carvedilol 6.25 mg tablet 6.25 mg PO BID 12/11/22 Unknown History chlorthalidone 25 mg tablet 25 mg PO DAILY 12/11/22 Unknown History fexofenadine 60 mg tablet (Raysa 60 mg PO Q12H 12/11/22 Unknown History Allergy) fluticasone propionate 50 spray intranasal 12/11/22 Unknown History mcg/actuation nasal spray,suspension levothyroxine 100 mcg tablet 100 mcg PO DAILY 12/11/22 Unknown History multivitamin 1 tab PO DAILY 12/11/22 Unknown History omeprazole 40 mg capsule,delayed 40 mg PO DAILY 12/11/22 Unknown History release sertraline 100 mg tablet 100 mg PO BEDTIME 12/11/22 Unknown History rosuvastatin 20 mg tablet (Crestor) 20 mg PO DAILY 03/12/23 Unknown History ibuprofen 800 mg tablet 800 mg PO TID 06/15/24 Unknown History semaglutide 0.25 mg or 0.5 mg (2 0.25 mg subcut QWEEK 06/15/24 Unknown History mg/3 mL) subcutaneous pen injector (Ozempic) empagliflozin 10 mg tablet 10 mg PO DAILY 05/10/25 Unknown History (Jardiance) Physical Exam Vital Signs and Narrative: Vital Signs: Last Vital Signs Temp 98.3 F 05/10/25 16:34 Pulse 65 05/10/25 16:34 Resp 12 05/10/25 16:34 BP 140/53 H 05/10/25 16:34 Pulse Ox 97 05/10/25 16:34 O2 Del Method Room Air 05/10/25 16:34 BMI result Body Mass Index 38.4 General: AO X 3, no acute distress Resp: CTA bilateral, no accessory muscles used CVS: S1,S2,RRR GI: soft, non tender, non distended Neuro: motor grossly intact, alert Psych: appropriate affect, appropriate insight Results Labs 05/10/25 16:10 05/10/25 16:10 Labs: Laboratory Results - last 24 hr 05/10/25 05/10/25 16:10 16:47 MCV 84.3 MCH 28.8 MCHC 34.2 RDW 13.6 Plt Count 231 MPV 10.3 Immature Gran % (Auto) 0.3 Neut % (Auto) 72.4 Lymph % (Auto) 16.9 [place] % (Auto) 8.5 Eos % (Auto) 1.6 Baso % (Auto) 0.3 Lymph # (Auto) 1.8 [place] # (Auto) 0.9 Eos # (Auto) 0.2 Baso # (Auto) 0.0 Abs Immat Gran (auto) 0.03 Absolute Neuts (auto) 7.5 Absolute Nucleated RBC 0.000 Nucleated RBC % (auto) 0.0 Anion Gap 12 Estim Creat Clear Calc 41.1 Estimated GFR 33 Random Glucose 135 H Calcium 9.4 D Magnesium 2.3 Total Bilirubin 0.6 AST 34 H ALT 12 Alkaline Phosphatase 120 H Troponin I High Sens 13.4 Total Protein 7.4 Albumin 4.3 Lipase 26 Urine Color Yellow Urine Appearance Clear Urine pH 5.5 Ur Specific [place] 1.020 Urine Protein 100 (2+) H Urine Glucose (UA) >=1000 H Urine Ketones Negative Urine Blood Small (1+) H Urine Nitrite Negative Ur Leukocyte Esterase Negative Influenza Type A (PCR) NEGATIVE Influenza Type B (PCR) NEGATIVE RSV RNA Qual (PCR) NEGATIVE SARS-CoV-2 RNA (RT-PCR) NEGATIVE Imaging Radiologist's Impressions: Impressions Chest X-Ray 05/10/25 16:12 IMPRESSION: Unremarkable examination. Electronically signed by: Alberto Avilez MD 05/10/2025 04:24 PM EDT RP Assessment and Plan (1) Morbid obesity: Status: Acute Plan 64F PMH VIVIENNE on cpap, copd, htn, hld, obesity, DM, hypothyroid presented with sob, hypokalemia, BONILLA severe acute hypokalemia, bonilla due to chlorthalidone and poor intaker replace potassium, give NS, monitor elevated ddimer, sob pulm eval empiric dose of lovenox likely CTA chest tomorrow if renal function improves vivienne cpap obesity weight loss hypothryoid synthroid dm insulin copd inhalers dvt prophylaxis- got one dose of lovenox, will readdress in AM full code Quality Stroke Does the patient have a stroke diagnosis?: No VTE Prior VTE?: No VTE Risk Level:: Medical - moderate - high VTE Device Contraindication: Treatment Not Indicated VTE Drug Contraindication: N/A - Med Ordered
[2025-05-10 18:17] LABS: Glucose, Whole Blood 112 mg/dL (60-115)
[2025-05-10 18:26] VITALS: BP 140/53; PULSE 62; RESP 20; TEMP 36.6; O2SAT 100
--- NOTE | 2025-05-10 19:59 | PHA.MEDREC ---
Pharmacy Consult ? Medication Reconciliation Pharmacy has completed the medication reconciliation. Spoke to patient to confirm medication list. Per patient, she uses symbicort, not Breztri. She confirms carvedilol 12.5 mg daily in the morning and 6.25 mg at bedtime. She inject ozempic 0.5 mg every week on Thursday. She took her morning doses today 05/10/25.
[2025-05-10 21:38] VITALS: BMI 38.4
[2025-05-10 22:03] LABS: Glucose, Whole Blood 110 mg/dL (60-115)
[2025-05-10] MEDS: oxyCODONE HCl Immed Release 5 MG TABLET PO (22:29)
[2025-05-11] VITALS (9 sets, daily range): BP systolic 118–159; BP diastolic 57–73; PULSE 54–66; RESP 16–18; TEMP 35.7–36.6; O2SAT 91–99
[2025-05-11 07:16] LABS: Alanine Aminotransferase 10 U/L (0-31); Albumin Level 3.9 g/dL (3.5-5.0); Alkaline Phosphatase 99 U/L (39-117); Anion Gap 12 (12-20); Aspartate Amino Transferase 27 U/L (5-31); Blood Urea Nitrogen 24 mg/dL (9-16); Calcium 9.4 mg/dL (8.4-10.2); Carbon Dioxide 35 mmol/L (22-29); Chloride 96 mmol/L (96-108); Creatinine Clr Calc Pharmacy 50.1; Estimated Glomerular Filt Rate 42; Magnesium 2.4 mg/dL (1.6-2.6); Sodium 140 mmol/L (135-145); Total Protein 6.7 g/dL (6.5-8.0)
[2025-05-11 07:19] LABS: Hematocrit 34.8 % (37.0-47.0); Hemoglobin 11.5 g/dl (12.0-16.0); Mean Corpuscular HGB Conc 33.0 g/dl (31.0-35.0); Mean Corpuscular Hemoglobin 28.3 pg (27.0-33.0); Mean Corpuscular Volume 85.7 fL (80.0-98.0); NRBC Abs Auto 0.000 X10*3/uL (0.0-0.012); NRBC Pct Auto 0.0 /100WBC (0.0-0.2); Platelet Count 203 X10*3/uL (160-400); Red Blood Count 4.06 X10*6/uL (4.20-5.50); White Blood Count 8.1 X10*3/uL (4.8-10.8)
[2025-05-11 07:25] LABS: Potassium 2.9 mmol/L (3.3-5.1)
[2025-05-11 07:49] LABS: Glucose, Whole Blood 112 mg/dL (60-115)
[2025-05-11] MEDS: Potassium Chloride ER 20 MEQ TAB.ER.PRT 40 MEQ PO (08:39)
[2025-05-11] MEDS: Fluticasone/Vilanterol 200/25 BLST.W.DEV 1 PUFF INHALE (09:15)
--- NOTE | 2025-05-11 09:19 | P.CONPL_ITS ---
History of Present Illness History of Present Illness Consult date: 05/11/25 Chief complaint: Hypokalemi , bonilla Narrative: This is an inpatient pulmonary consultation. The patient is a 64F PMH VIVIENNE on cpap, copd, htn, hld, obesity, DM, hypothyroid presented with sob, hypokalemia, BONILLA. Patient was on a recent cruise was feeling nauseous, poor p.o. intake, denies vomiting, minimal diarrhea, reports sob, worse on exertion, fatigue. Bloodwork done which revealed hypokalemia, D-dimer of 350, creatinine of 1.5. sent to ED. Was admited with ARF. VQ negative for PE. CXR is clear. She is doing better. Some episodes of hypoxia noted. Now on a continuous oxygen monitor to reassess. Review of Systems 2 Constitutional: Constitutional: Reports fatigue ENT: Denies dysphagia Cardiovascular: Cardiovascular: Denies chest pain and Reports dyspnea on exertion Respiratory: Respiratory: Reports dyspnea on exertion Gastrointestinal: Gastrointestinal: Denies dysphagia Musculoskeletal: Musculoskeletal: Reports arthralgias and Reports joint swelling Endocrine: Endocrine: Reports fatigue Hematologic/Lymphatic: Hematologic/Lymphatic: Reports no additional hematologic/lymphatic complaints Allergic/Immunologic: Allergic/Immunologic: Reports no additional allergic/immunologic complaints PMFSH Past Medical History Medical History Hypoxia VIVIENNE on CPAP Pulmonary nodules Lymphadenopathy Asthma-COPD overlap syndrome Social History Social History Household Members: Children Housing: House Patient Tobacco Use Status: Never used Tobacco Meds Allergies Allergy/AdvReac Type Severity Reaction Status Date / Time lisinopril Allergy Severe Anaphylaxis Verified 05/10/25 15:52 Active Medications: Current Medications Acetaminophen (Acetaminophen 325 Mg Tablet) 650 mg PO Q6H PRN PRN Reason: Pain, Moderate(Pain Scale 4-6) Last Admin: 05/11/25 08:38 Dose: 650 mg Amitriptyline HCl (Amitriptyline Hcl 10 Mg Tablet) 10 mg PO BEDTIME ASHLEE Last Admin: 05/10/25 21:54 Dose: 10 mg Amlodipine Besylate (Amlodipine Besylate 5 Mg Tablet) 5 mg PO DAILY ASHLEE; Protocol Last Admin: 05/11/25 08:39 Dose: 5 mg Atorvastatin Calcium (Atorvastatin Calcium 80 Mg Tablet) 80 mg PO DAILY ASHLEE Last Admin: 05/11/25 08:39 Dose: 80 mg Carvedilol (Carvedilol 12.5 Mg Tablet) 12.5 mg PO DAILY [facility]; Protocol Last Admin: 05/11/25 08:39 Dose: 12.5 mg Carvedilol (Carvedilol 6.25 Mg Tablet) 6.25 mg PO BEDTIME [facility]; Protocol Last Admin: 05/10/25 21:54 Dose: 6.25 mg Dextrose (Dextrose 50 % 25 Gm/50 Ml Syringe) 25 gm IVPUSH Q15M PRN; Protocol PRN Reason: per Hypoglycemia Standing Ord. Fluticasone/Vilanterol (Fluticasone/Vilanterol 200/25 Blst.W.Dev) 1 puff INHALE RDAILY [facility] Last Admin: 05/11/25 09:15 Dose: 1 puff Glucose (Glucose Gel 15 Gm Gel..Gram.) 15 gm PO Q15M PRN; Protocol PRN Reason: per Hypoglycemia Standing Ord. Sodium Chloride (Ns) 1,000 mls @ 100 mls/hr IVCONT .Q10H [facility] Last Admin: 05/11/25 08:40 Dose: 100 mls/hr Insulin Human Lispro (Insulin Lispro 100 Unit/Ml 3 Ml Vial) 0 unit SUBCUT QIDACHS [facility]; Protocol Last Admin: 05/11/25 08:22 Dose: Not Given Levothyroxine Sodium (Levothyroxine Sodium 100 Mcg Tablet) 100 mcg PO DAILY@0600 [facility] Last Admin: 05/11/25 03:43 Dose: 100 mcg Multivitamins/Vitamin C (Multivitamin Tablet) 1 tab PO DAILY [facility] Last Admin: 05/11/25 08:39 Dose: 1 tab Sertraline HCl (Sertraline Hcl 100 Mg Tablet) 100 mg PO BEDTIME [facility] Last Admin: 05/10/25 21:54 Dose: 100 mg Home Medications ?Medication ?Instructions ?Recorded ?Confirmed ?Last Taken ?Type amitriptyline 10 mg tablet 10 mg PO BEDTIME 01/09/21 0 05/10/25 05/09/25 History chlorthalidone 25 mg tablet 25 mg PO DAILY 12/11/2205/10/25 History fexofenadine 60 mg tablet (Raysa 60 mg PO DAILY PRN Allergy Symptoms 12/11/22 05/10/25 Unknown History Allergy) fluticasone propionate 50 1 spray intranasal DAILY 01/0105/10/25 05/10/25 History mcg/actuation nasal spray,suspension levothyroxine 100 mcg tablet 100 mcg PO DAILY 12/11/22 05/10/25 05/10/25 History multivitamin 1 tab PO DAILY 12/11/22 07/0 01/0305/10/25 History omeprazole 40 mg capsule,delayed 40 mg PO DAILY 05/10/25 05/10/25 History release sertraline 100 mg tablet 100 mg PO BEDTIME 12/11/22 0 05/10/25 05/09/25 History rosuvastatin 20 mg tablet (Crestor) 20 mg PO DAILY 03/0105/10/25 05/10/25 History ibuprofen 800 mg tablet 800 mg PO TID 06/15/2405/10 Unknown History semaglutide 0.25 mg or 0.5 mg (2 0.5 mg subcut [place] 06/0105/10/25 05/08/25 History mg/3 mL) subcutaneous pen injector (Ozempic) amlodipine 5 mg tablet 5 mg PO DAILY 05/10/2505/1005/10/25 History carvedilol 12.5 mg tablet 6.25 mg PO BEDTIME 05/10/25 05/10/25 05/09/25 History carvedilol 12.5 mg tablet 12.5 mg PO DAILY 05/10/2505/10/25 History empagliflozin 10 mg tablet 10 mg PO DAILY 05/10/2501/0305/10/25 History (Jardiance) furosemide 20 mg tablet 10 mg PO DAILY 05/10/2501/0305/10/25 History Physical Exam 2 Vital Signs: Vital Signs: Last Vital Signs Temp 97.0 F 05/11/25 07:50 Pulse 60 05/11/25 09:18 Resp 16 05/11/25 09:18 BP 124/58 L 05/11/25 08:39 Pulse Ox 97 05/11/25 07:50 O2 Del Method Nasal Cannula 05/11/25 07:50 O2 Flow Rate 2 05/11/25 07:50 BMI result Body Mass Index 38.4 Const: General: alert HEENT: General nose exam: Abnormal external nose present and Nasal discharge present Eyes: Pupils: Equal, round and reactive pupils present Neck: Neck: Yes normal visual inspection, Yes full ROM and Yes no lymphadenopathy Chest: Chest palpation & inspection: normal inspection of the chest Resp: Auscultation: no rales, no rhonchi, no wheezes and diminished lung sounds Cardio: Rate: regular rate Rhythm: regular rhythm Heart sounds: S1 normal heart sound present and S2 normal heart sound present GI: Palpation (GI): Soft to palpation and nontender Auscultation: normal bowel sounds : General: Yes no CVA tenderness Back/Spine/Pelvis: Back: no CVA tenderness Skin: General skin exam: rashes and/or lesions noted Neuro: Cranial nerves: Yes Equal, round and reactive pupils present Extrem: General: Yes edema Results Laboratory Findings 05/11/25 06:29 05/11/25 06:29 Abnormal lab findings: Abnormal Labs 05/10/25 05/10/25 05/11/25 16:10 16:47 06:29 RBC 4.06 L Hgb 11.5 L Hct 35.4 L 34.8 L Lymph % (Auto) 16.9 L Potassium 2.4 L* 2.9 L* D Chloride 91 L Carbon Dioxide 37 H 35 H BUN 30 H 24 H Creatinine 1.56 H Random Glucose 135 H 126 H AST 34 H Alkaline Phosphatase 120 H Urine Protein 100 (2+) H Urine Glucose (UA) >=1000 H Urine Blood Small (1+) H Assessment and Plan (1) BONILLA (acute kidney injury): Status: Acute (2) Dyspnea: Qualifiers: Dyspnea type: dyspnea on exertion Qualified Code(s): R06.09 - Other forms of dyspnea Status: Acute (3) Hypoxia: Status: Acute Plan R/O PE with negative nuclear perfusion study Incentive spirometry check oxygen, if drops below 90% then consider additional in pt testing CPAP at night Renal function and electrolytes are better Procedures Date of Service Date of Service: 05/11/25
--- NOTE | 2025-05-11 09:26 | HO.PM.IMPN ---
Subjective Subjective Date of Service: 05/11/25 Interval History: still sob Physical Exam Vital Signs: Vital Signs: Last Vital Signs Temp 97.0 F 05/11/25 07:50 Pulse 60 05/11/25 09:18 Resp 16 05/11/25 09:18 BP 124/58 L 05/11/25 08:39 Pulse Ox 97 05/11/25 07:50 O2 Del Method Nasal Cannula 05/11/25 07:50 O2 Flow Rate 2 05/11/25 07:50 BMI result Body Mass Index 38.4 General: AO X 3, no acute distress Resp: CTA bilateral, no accessory muscles used CVS: S1,S2,RRR GI: soft, non tender, non distended Neuro: motor grossly intact, alert Psych: appropriate affect, appropriate insight Objective Data Active Medications Acetaminophen (Acetaminophen 325 Mg Tablet) 650 mg PO Q6H PRN PRN Reason: Pain, Moderate(Pain Scale 4-6) Last Admin: 05/11/25 08:38 Dose: 650 mg Documented By: AJAY Amitriptyline HCl (Amitriptyline Hcl 10 Mg Tablet) 10 mg PO BEDTIME ASHLEE Last Admin: 05/10/25 21:54 Dose: 10 mg Documented By: JERO Amlodipine Besylate (Amlodipine Besylate 5 Mg Tablet) 5 mg PO DAILY ASHLEE; Protocol Last Admin: 05/11/25 08:39 Dose: 5 mg Documented By: AJAY Atorvastatin Calcium (Atorvastatin Calcium 80 Mg Tablet) 80 mg PO DAILY ASHLEE Last Admin: 05/11/25 08:39 Dose: 80 mg Documented By: AJAY Carvedilol (Carvedilol 12.5 Mg Tablet) 12.5 mg PO DAILY ASHLEE; Protocol Last Admin: 05/11/25 08:39 Dose: 12.5 mg Documented By: AJAY Carvedilol (Carvedilol 6.25 Mg Tablet) 6.25 mg PO BEDTIME ASHLEE; Protocol Last Admin: 05/10/25 21:54 Dose: 6.25 mg Documented By: JERO Dextrose (Dextrose 50 % 25 Gm/50 Ml Syringe) 25 gm IVPUSH Q15M PRN; Protocol PRN Reason: per Hypoglycemia Standing Ord. Fluticasone/Vilanterol (Fluticasone/Vilanterol 200/25 Blst.W.Dev) 1 puff INHALE RDAILY [facility] Last Admin: 05/11/25 09:15 Dose: 1 puff Documented By: NUNO Glucose (Glucose Gel 15 Gm Gel..Gram.) 15 gm PO Q15M PRN; Protocol PRN Reason: per Hypoglycemia Standing Ord. Sodium Chloride (Ns) 1,000 mls @ 100 mls/hr IVCONT .Q10H [facility] Last Admin: 05/11/25 08:40 Dose: 100 mls/hr Documented By: AJAY Insulin Human Lispro (Insulin Lispro 100 Unit/Ml 3 Ml Vial) 0 unit SUBCUT QIDACHS [facility]; Protocol Last Admin: 05/11/25 08:22 Dose: Not Given Documented By: AJAY Non-Admin Reason: No Insulin Coverage Levothyroxine Sodium (Levothyroxine Sodium 100 Mcg Tablet) 100 mcg PO DAILY@0600 [facility] Last Admin: 05/11/25 03:43 Dose: 100 mcg Documented By: JERO Multivitamins/Vitamin C (Multivitamin Tablet) 1 tab PO DAILY [facility] Last Admin: 05/11/25 08:39 Dose: 1 tab Documented By: AJAY Sertraline HCl (Sertraline Hcl 100 Mg Tablet) 100 mg PO BEDTIME [facility] Last Admin: 05/10/25 21:54 Dose: 100 mg Documented By: JERO Labs 05/11/25 06:29 05/11/25 06:29 Labs: Laboratory Results - last 24 hr 05/10/25 05/10/25 05/10/25 16:10 16:47 18:14 MCV 84.3 MCH 28.8 MCHC 34.2 RDW 13.6 Plt Count 231 MPV 10.3 Immature Gran % (Auto) 0.3 Neut % (Auto) 72.4 Lymph % (Auto) 16.9 L [place] % (Auto) 8.5 Eos % (Auto) 1.6 Baso % (Auto) 0.3 Lymph # (Auto) 1.8 [place] # (Auto) 0.9 Eos # (Auto) 0.2 Baso # (Auto) 0.0 Abs Immat Gran (auto) 0.03 Absolute Neuts (auto) 7.5 Absolute Nucleated RBC 0.000 Nucleated RBC % (auto) 0.0 Anion Gap 12 Estim Creat Clear Calc 41.1 Estimated GFR 33 POC Glucose 112 Random Glucose 135 H Calcium 9.4 D Magnesium 2.3 Total Bilirubin 0.6 Direct Bilirubin AST 34 H ALT 12 Alkaline Phosphatase 120 H Troponin I High Sens 13.4 Total Protein 7.4 Albumin 4.3 Lipase 26 Urine Color Yellow Urine Appearance Clear Urine pH 5.5 Ur Specific [place] 1.020 Urine Protein 100 (2+) H Urine Glucose (UA) >=1000 H Urine Ketones Negative Urine Blood Small (1+) H Urine Nitrite Negative Ur Leukocyte Esterase Negative Urine RBC 0-2 Urine WBC 0-5 Ur Squamous Epith Cells 0-2 Urine Bacteria None Seen Hyaline Casts 3-5 Influenza Type A (PCR) NEGATIVE Influenza Type B (PCR) NEGATIVE RSV RNA Qual (PCR) NEGATIVE SARS-CoV-2 RNA (RT-PCR) NEGATIVE 05/10/25 05/11/25 05/11/25 21:54 06:29 07:29 MCV 85.7 MCH 28.3 MCHC 33.0 RDW 13.7 Plt Count 203 MPV 10.8 Immature Gran % (Auto) Neut % (Auto) Lymph % (Auto) [place] % (Auto) Eos % (Auto) Baso % (Auto) Lymph # (Auto) [place] # (Auto) Eos # (Auto) Baso # (Auto) Abs Immat Gran (auto) Absolute Neuts (auto) Absolute Nucleated RBC 0.000 Nucleated RBC % (auto) 0.0 Anion Gap 12 Estim Creat Clear Calc 50.1 Estimated GFR 42 POC Glucose 110 112 Random Glucose 126 H Calcium 9.4 Magnesium 2.4 Total Bilirubin 0.4 Direct Bilirubin 0.2 AST 27 ALT 10 Alkaline Phosphatase 99 Troponin I High Sens Total Protein 6.7 Albumin 3.9 Lipase Urine Color Urine Appearance Urine pH Ur Specific [place] Urine Protein Urine Glucose (UA) Urine Ketones Urine Blood Urine Nitrite Ur Leukocyte Esterase Urine RBC Urine WBC Ur Squamous Epith Cells Urine Bacteria Hyaline Casts Influenza Type A (PCR) Influenza Type B (PCR) RSV RNA Qual (PCR) SARS-CoV-2 RNA (RT-PCR) Assessment and Plan (1) Blood D-dimer assay positive: Status: Acute Plan 64F PMH VIVIENNE on cpap, copd, htn, hld, obesity, DM, hypothyroid presented with sob, hypokalemia, JORGE acute hypokalemia, jorge due to chlorthalidone and poor intake replace potassium, ivf, monitor elevated ddimer, sob vq negative pulm following acute hypoxic respiratory failure wean o2, continuous pulse ox, goal sat 90-93% vivienne cpap obesity weight loss hypothryoid synthroid dm insulin copd inhalers dvt prophylaxis- lovenox full code reason for continued hospitalization:hypoxia Quality Stroke Does the patient have a stroke diagnosis?: No VTE Prior VTE?: No VTE Risk Level:: Medical - moderate - high VTE Device Contraindication: Treatment Not Indicated VTE Drug Contraindication: N/A - Med Ordered
--- NOTE | 2025-05-11 09:51 | MHC.CM.PN ---
Pt lives with her , She does not use home health services, for DME, she uses a CPAP, and a cane. PCP is confirmed: Vaughn Barajas. HCP discussed, she declined to complete form here. to transport home at DC, DCP: home, self care. Cm to follow for DC needs.
[2025-05-11 11:37] LABS: Glucose, Whole Blood 102 mg/dL (60-115)
--- NOTE | 2025-05-11 12:29 | PM.CNPUL ---
History of Present Illness History of Present Illness Consult date: 05/11/25 Chief complaint: Hypokalemi , bonilla Narrative: This id an inpatient pulmonary consult. The patient is a 64F PMH VIVIENNE on cpap, copd, htn, hld, obesity, DM, hypothyroid presented with sob, hypokalemia, BONILLA. Patient was on a recent cruise was feeling nauseous, poor p.o. intake, denies vomiting, minimal diarrhea, reports sob, worse on exertion, fatigue. 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 sent to ED. VQ scan negative for PE. CXR personally reviewed by me was normal. Did require oxygen supplementation. Renal fuction is improving. Review of Systems Constitutional: Constitutional: Reports fatigue ENT: Denies dysphagia Cardiovascular: Cardiovascular: Denies chest pain and Reports dyspnea on exertion Respiratory: Respiratory: Reports dyspnea on exertion Gastrointestinal: Gastrointestinal: Denies dysphagia Musculoskeletal: Musculoskeletal: Reports arthralgias and Reports joint swelling Endocrine: Endocrine: Reports fatigue Hematologic/Lymphatic: Hematologic/Lymphatic: Reports no additional hematologic/lymphatic complaints Allergic/Immunologic: Allergic/Immunologic: Reports no additional allergic/immunologic complaints PMF Past Medical History Medical History Hypoxia VIVIENNE on CPAP Pulmonary nodules Lymphadenopathy Asthma-COPD overlap syndrome Social History Social History Household Members: Children Housing: House Patient Tobacco Use Status: Never used Tobacco service: No Meds Allergies Allergy/AdvReac Type Severity Reaction Status Date / Time lisinopril Allergy Severe Anaphylaxis Verified 05/10/25 15:52 Active Medications: Current Medications Acetaminophen (Acetaminophen 325 Mg Tablet) 650 mg PO Q6H PRN PRN Reason: Pain, Moderate(Pain Scale 4-6) Last Admin: 05/11/25 08:38 Dose: 650 mg Amitriptyline HCl (Amitriptyline Hcl 10 Mg Tablet) 10 mg PO BEDTIME ASHLEE Last Admin: 05/10/25 21:54 Dose: 10 mg Amlodipine Besylate (Amlodipine Besylate 5 Mg Tablet) 5 mg PO DAILY ASHLEE; Protocol Last Admin: 05/11/25 08:39 Dose: 5 mg Atorvastatin Calcium (Atorvastatin Calcium 80 Mg Tablet) 80 mg PO DAILY ASHLEE Last Admin: 05/11/25 08:39 Dose: 80 mg Carvedilol (Carvedilol 12.5 Mg Tablet) 12.5 mg PO DAILY [facility]; Protocol Last Admin: 05/11/25 08:39 Dose: 12.5 mg Carvedilol (Carvedilol 6.25 Mg Tablet) 6.25 mg PO BEDTIME [facility]; Protocol Last Admin: 05/10/25 21:54 Dose: 6.25 mg Dextrose (Dextrose 50 % 25 Gm/50 Ml Syringe) 25 gm IVPUSH Q15M PRN; Protocol PRN Reason: per Hypoglycemia Standing Ord. Enoxaparin Sodium (Enoxaparin Sodium 40 Mg/0.4 Ml Syringe) 40 mg SUBCUT Q24H [facility] Fluticasone/Vilanterol (Fluticasone/Vilanterol 200/25 Blst.W.Dev) 1 puff INHALE RDAILY [facility] Last Admin: 05/11/25 09:15 Dose: 1 puff Glucose (Glucose Gel 15 Gm Gel..Gram.) 15 gm PO Q15M PRN; Protocol PRN Reason: per Hypoglycemia Standing Ord. Sodium Chloride (Ns) 1,000 mls @ 100 mls/hr IVCONT .Q10H [facility] Last Admin: 05/11/25 08:40 Dose: 100 mls/hr Insulin Human Lispro (Insulin Lispro 100 Unit/Ml 3 Ml Vial) 0 unit SUBCUT QIDACHS [facility]; Protocol Last Admin: 05/11/25 11:46 Dose: Not Given Levothyroxine Sodium (Levothyroxine Sodium 100 Mcg Tablet) 100 mcg PO DAILY@0600 [facility] Last Admin: 05/11/25 03:43 Dose: 100 mcg Multivitamins/Vitamin C (Multivitamin Tablet) 1 tab PO DAILY [facility] Last Admin: 05/11/25 08:39 Dose: 1 tab Sertraline HCl (Sertraline Hcl 100 Mg Tablet) 100 mg PO BEDTIME [facility] Last Admin: 05/10/25 21:54 Dose: 100 mg Home Medications ?Medication ?Instructions ?Recorded ?Confirmed ?Last Taken ?Type amitriptyline 10 mg tablet 10 mg PO BEDTIME 01/09/21 05/10/25 05/09/25 History fexofenadine 60 mg tablet (Raysa 60 mg PO DAILY PRN Allergy Symptoms 12/11/22 05/10/25 Unknown History Allergy) fluticasone propionate 50 1 spray intranasal DAILY 12/11/22 05/10/25 05/10/25 History mcg/actuation nasal spray,suspension levothyroxine 100 mcg tablet 100 mcg PO DAILY 12/11/22 05/10/25 05/10/25 History multivitamin 1 tab PO DAILY 12/11/22 05/10/25 05/10/25 History omeprazole 40 mg capsule,delayed 40 mg PO DAILY 12/11/22 05/10/25 05/10/25 History release sertraline 100 mg tablet 100 mg PO BEDTIME 12/11/22 05/10/25 05/09/25 History rosuvastatin 20 mg tablet (Crestor) 20 mg PO DAILY 03/12/23 05/10/25 05/10/25 History semaglutide 0.25 mg or 0.5 mg (2 0.5 mg subcut MO 06/15/24 05/10/25 05/08/25 History mg/3 mL) subcutaneous pen injector (Ozempic) amlodipine 5 mg tablet 5 mg PO DAILY 05/10/25 05/10/25 05/10/25 History carvedilol 12.5 mg tablet 6.25 mg PO BEDTIME 05/10/25 05/10/25 05/09/25 History carvedilol 12.5 mg tablet 12.5 mg PO DAILY 05/10/25 05/10/25 05/10/25 History empagliflozin 10 mg tablet 10 mg PO DAILY 05/10/25 05/10/25 05/10/25 History (Jardiance) Physical Exam Vital Signs: Vital Signs: Last Vital Signs Temp 97.7 F 05/11/25 11:46 Pulse 54 05/11/25 11:46 Resp 16 05/11/25 11:46 BP 118/57 L 05/11/25 11:46 Pulse Ox 99 05/11/25 11:46 O2 Del Method Nasal Cannula 05/11/25 11:46 O2 Flow Rate 2 05/11/25 11:46 BMI result Body Mass Index 38.4 General: AO X 3, no acute distress Resp: CTA bilateral, no accessory muscles used CVS: S1,S2,RRR GI: soft, non tender, non distended Neuro: motor grossly intact, alert Psych: appropriate affect, appropriate insight Results Laboratory Findings 05/11/25 06:29 05/12/25 06:56 Abnormal lab findings: Abnormal Labs 05/10/25 05/10/25 05/11/25 16:10 16:47 06:29 RBC 4.06 L Hgb 11.5 L Hct 35.4 L 34.8 L Lymph % (Auto) 16.9 L Potassium 2.4 L* 2.9 L* D Chloride 91 L Carbon Dioxide 37 H 35 H BUN 30 H 24 H Creatinine 1.56 H Random Glucose 135 H 126 H AST 34 H Alkaline Phosphatase 120 H Urine Protein 100 (2+) H Urine Glucose (UA) >=1000 H Urine Blood Small (1+) H Assessment and Plan (1) BONILLA (acute kidney injury): Status: Acute (2) Blood D-dimer assay positive: Status: Acute (3) Asthma-COPD overlap syndrome: Status: Acute (4) Pulmonary nodules: Status: Acute Plan R/O PE with VQ wean off oxygen supplementation to keep pox >90% continue respiratory therapy F/U as an outpt Procedures Date of Service Date of Service: 05/15/25
[2025-05-11 15:49] LABS: Glucose, Whole Blood 100 mg/dL (60-115)
[2025-05-11 21:08] LABS: Glucose, Whole Blood 107 mg/dL (60-115)
[2025-05-12] VITALS: BP 145/82; PULSE 60; RESP 20; TEMP 36.4; O2SAT 98
[2025-05-12 03:51] VITALS: BP 125/65; PULSE 64; RESP 18; TEMP 36.4; O2SAT 95
--- NOTE | 2025-05-12 07:24 | PC.NURSE ---
Addendum entered by Jensen Street RN 05/12/25 09:52: per ok to administer tylenol early Original Note: pt refusing fall precautions despite education
[2025-05-12 07:38] LABS: Glucose, Whole Blood 110 mg/dL (60-115)
[2025-05-12 07:52] LABS: Anion Gap 13 (12-20); Blood Urea Nitrogen 23 mg/dL (9-16); Calcium 9.4 mg/dL (8.4-10.2); Carbon Dioxide 34 mmol/L (22-29); Chloride 100 mmol/L (96-108); Creatinine Clr Calc Pharmacy 59.4; Estimated Glomerular Filt Rate 51; Magnesium 2.1 mg/dL (1.6-2.6); Potassium 3.1 mmol/L (3.3-5.1); Sodium 144 mmol/L (135-145)
[2025-05-12 07:58] VITALS: BP 148/77; PULSE 60; RESP 20; TEMP 36.5; O2SAT 97
[2025-05-12] MEDS: Fluticasone/Vilanterol 200/25 BLST.W.DEV 1 PUFF INHALE (08:37)
[2025-05-12 08:39] VITALS: O2SAT 98
[2025-05-12 08:40] VITALS: PULSE 63; RESP 18; O2SAT 95
[2025-05-12] MEDS: Potassium Chloride ER 20 MEQ TAB.ER.PRT 40 MEQ PO (10:20)
--- NOTE | 2025-05-12 10:21 | PM.DS ---
DS: Providers Provider Date of Service: 05/12/25 Date of admission: 05/10/25 17:23 Date of discharge: 05/12/25 Primary care physician: Vaughn Barajas MD Consults: 05/10/25 17:25 Consult to Pulmonology Routine Consulting Provider[place] [facility] [place] Reason for consultation: sob, elevated ddimer DS: Diagnosis Discharge Diagnosis (1) Blood D-dimer assay positive: Status: Acute DS: Summary Hospital Course Hospital Course: from initial hpi: 64F PMH VIVIENNE on cpap, copd, htn, hld, obesity, DM, hypothyroid presented with sob, hypokalemia, BONILLA. Patient was on a recent cruise was feeling nauseous, poor p.o. intake, denies vomiting, minimal diarrhea, reports sob, worse on exertion, fatigue. Went to investigative analyst Dr. Knight, labs were done which revealed hypokalemia, D-dimer of 350, creatinine of 1.5. sent to ED. hospital course: Patient was admitted for acute hypokalemia and acute kidney injury due to chlorthalidone and poor intake. Diuretics were held patient was given potassium supplement and IV fluids and potassium improved to 3.1 at time of discharge and creatinine to 1.08 at time of discharge. Patient will continue on supplement of potassium 20 mEq daily and we will continue to hold diuretics. Should repeat labs in a few days. For elevated D-dimer and shortness of breath with transient hypoxia patient had V/Q scan which was negative, so likely related to her underlying COPD and electrolyte abnormalities, was seen by Pulmonary recommended weaning off O2 and outpatient follow up. Patient was able to weaned to room air. For VIVIENNE uses CPAP at bedtime. For obesity weight loss recommended. For hypothyroid was continued on levothyroxine. For diabetes was continued on insulin. Patient is feeling better will be discharged home. Time Attestation Discharge Coordination Time (in mins): 37 Quality: Safe Use of Opioids Does Pt have an Active Cancer Diagnosis on the Problem List?: No Quality: Stroke Does the patient have a stroke diagnosis?: No Physical Exam Vital Signs: Vital Signs: Last Vital Signs Temp 97.7 F 05/12/25 07:58 Pulse 63 05/12/25 08:40 Resp 18 05/12/25 08:40 BP 148/77 H 05/12/25 07:58 Pulse Ox 98 05/12/25 08:39 O2 Del Method Room Air 05/12/25 08:39 O2 Flow Rate 2 05/12/25 03:51 BMI result Body Mass Index 38.4 General: AO X 3, no acute distress Resp: CTA bilateral, no accessory muscles used CVS: S1,S2,RRR GI: soft, non tender, non distended Neuro: motor grossly intact, alert Psych: appropriate affect, appropriate insight DS: Data Data Completed and Pending Labs on day of discharge: Laboratory Results - last 24 hr 05/11/25 05/11/25 05/11/25 11:26 15:40 21:03 Sodium Potassium Chloride Carbon Dioxide Anion Gap BUN Creatinine Estim Creat Clear Calc Estimated GFR POC Glucose 102 100 107 Random Glucose Calcium Magnesium 05/12/25 05/12/25 06:56 07:18 Sodium 144 Potassium 3.1 L Chloride 100 Carbon Dioxide 34 H Anion Gap 13 BUN 23 H Creatinine 1.08 Estim Creat Clear Calc 59.4 Estimated GFR 51 POC Glucose 110 Random Glucose 106 Calcium 9.4 Magnesium 2.1 Discharge Plan Discharge Anticipated Discharge Date/Time: 05/12/25 10:17 Patient Disposition: Home, Self-Care Discharge Diagnosis: bonilla, low potassium Referrals: Vaughn Barajas MD [Primary Care Provider, Internal Medicine] - 1 Week Discharge Medications: New potassium chloride [Klor-Con M20] 20 mEq tablet,ER particles/crystals 20 meq PO DAILY Qty: 90 0RF Continued albuterol sulfate 90 mcg/actuation HFA aerosol inhaler 2 inh inhalation Q6H PRN (Reason: shortness of breath or wheezing) 30 Days Qty: 18 12RF budesonide-formoterol 160-4.5 mcg/actuation HFA aerosol inhaler 2 puff inhalation BID Qty: 30.6 3RF carvedilol 12.5 mg tablet 12.5 mg PO DAILY amlodipine 5 mg tablet 5 mg PO DAILY carvedilol 12.5 mg tablet 6.25 mg PO BEDTIME amitriptyline 10 mg tablet 10 mg PO BEDTIME rosuvastatin [Crestor] 20 mg tablet 20 mg PO DAILY sertraline 100 mg tablet 100 mg PO BEDTIME omeprazole 40 mg capsule,delayed release(DR/EC) 40 mg PO DAILY levothyroxine 100 mcg tablet 100 mcg PO DAILY fluticasone propionate 50 mcg/actuation spray,suspension 1 spray intranasal DAILY multivitamin Tablet 1 tab PO DAILY fexofenadine [Raysa Allergy] 60 mg tablet 60 mg PO DAILY PRN (Reason: Allergy Symptoms) Ozempic 0.25 mg or 0.5 mg (2 mg/3 mL) pen injector 0.5 mg subcut MO Jardiance 10 mg tablet 10 mg PO DAILY Discontinued furosemide 20 mg tablet 10 mg PO DAILY chlorthalidone 25 mg tablet 25 mg PO DAILY ibuprofen 800 mg tablet 800 mg PO TID Discharge Orders: Discharge Order (Routine); Ordered 05/12/25 Ordered By: Justin Enriquez Diet: Advance to usual diet Activity on Discharge: As tolerated Stand Alone Forms: Patient Portal Discharge page Print Language: Latvian Other Ambulatory Orders: Basic Metabolic Panel (Routine) Timeframe: 3 Days Facility: [facility] - Location: Laboratory Ordered By: Justin Enriquez Care Plan Goals: recovery Health Concerns: low potassium, bonilla Plan of Treatment: stop diuretics for now, repeat labs in a few days potassium supplement Assessment: see above
== END 2025-05-12 11:13 | disposition home or self-care (01) | DRG 469 ==
LOC: HO.ED 17:41 → HO.EDOVER 17:50 → HO.IMC 19:32
PROVIDERS: Physician Assistant; Admitting Provider Internal Medicine; Emergency Provider Emergency Medicine; PCP Internal Medicine; Visit Provider Internal Medicine
DX: N17.9 Acute kidney failure, unspecified (principal); J96.01 Acute respiratory failure with hypoxia; E87.6 Hypokalemia; G47.33 Obstructive sleep apnea (adult) (pediatric); T50.2X5A Adverse effect of carbonic-anhydrase inhibitors, benzothiadiazides and other diuretics, initial encounter; Z68.38 Body mass index [BMI] 38.0-38.9, adult; Z71.3 Dietary counseling and surveillance; J44.9 Chronic obstructive pulmonary disease, unspecified; E66.9 Obesity, unspecified; E03.9 Hypothyroidism, unspecified; Z20.822 Contact with and (suspected) exposure to COVID-19; Z79.51 Long term (current) use of inhaled steroids; Z79.890 Hormone replacement therapy; Z79.899 Other long term (current) drug therapy
CPT/HCPCS: 36415; 71046; 78580; 80048; 80053; 80076; 81001; 82947; 83690; 83735; 84484; 85025; 85027; 87637; 93005; 99222; 99285; A9540; J1171; J1650; J3480

== ENCOUNTER → 2025-05-10 15:54 | Outpatient (BNV) | payer BC, SELFPAY | PROVIDERS: Admitting Provider Internal Medicine; Emergency Provider Emergency Medicine; PCP Internal Medicine; Visit Provider Internal Medicine Cardiovascular Disease | DX: I45.10 Unspecified right bundle-branch block (principal) | CPT/HCPCS: 93010 ==

== ENCOUNTER → 2025-05-10 15:54 | Outpatient (BNV) | payer BC, SELFPAY | PROVIDERS: Emergency Provider Emergency Medicine; PCP Internal Medicine; Visit Provider Radiology Diagnostic Radiology | DX: R79.89 Other specified abnormal findings of blood chemistry (principal); R09.02 Hypoxemia | CPT/HCPCS: 78580 ==

== ENCOUNTER → 2025-05-10 17:23 | Outpatient (BNV) | payer BC, SELFPAY | PROVIDERS: Admitting Provider Internal Medicine; Emergency Provider Emergency Medicine; PCP Internal Medicine; Visit Provider Internal Medicine | DX: E66.01 Morbid (severe) obesity due to excess calories (principal) | CPT/HCPCS: 99223; 99232; 99239 ==

== ENCOUNTER → 2025-05-10 17:23 | Outpatient (BNV) | payer BC, SELFPAY | PROVIDERS: Admitting Provider Internal Medicine; Emergency Provider Emergency Medicine; PCP Internal Medicine; Visit Provider Hospitalist | DX: N17.9 Acute kidney failure, unspecified (principal); R06.09 Other forms of dyspnea; R09.02 Hypoxemia | CPT/HCPCS: 99232; 99252 ==